=== PATIENT | male | born 1955 | race Caucasian/White ===

== ENCOUNTER → 2016-11-28 | Day surgery (SDC) | payer OTHER ==
[2016-11-08 09:57] VITALS: Ht 176.5 cm; Wt 82.7 kg
[~2016-11-28] VITALS: Ht 176.5 cm; Wt 82.7 kg
[~2016-11-28] MED LIST: ALLO100T PO; ASCA500 PO; ATOR-54 PO; BICA50TA6 PO; CALC500C70 PO; CALCTAB65 PO; CHOL400T PO; ENOX30IN4 SQ; FERR1TAB23 PO; FOLI1TAB7 PO; FURO-85 PO; GABA-113 PO; LIDOCAINE HCL 2% 2 ML VIAL (20MG/ML) ONE; LORA-741 PO; METO100T14 PO; METO50TA16 PO; OMEGCAP2 PO; OXYC1TAB3 PO; PRLSR20 PO; PROPOFOL IV EMULSION 10 MG/ML 20 ML VIAL IV ONE; SODIUM CHLORIDE 0.9% 500ML 500 ML IV ONE; VTMB122500 SL; WARF5TAB7 PO
--- NOTE | 2016-11-28 14:41 | Endo History and Physical ---
History & Physical Date of Service: Nov 28, 2016. Chief Complaint: Bleeding Referring Physician: Nam Carlson PA-C And Nam Vallejo D.O. History of Present Illness anemia; heme positive stools Past Medical History Pulmonary Emboli, Anxiety, Reflux, Cancer, High Cholesterol, Sleep Apnea, Hypertension Past Surgical History Hx Cardiac Surgery: No Hx Internal Defibrillator: No Hx Pacemaker: No Hx Abdominal Surgery: No Hx of Implantable Prosthesis: No Hx Post-Op Nausea and Vomiting: No Hx Cancer Surgery: Yes (PROSTATECTOMY) Hx Thoracic Surgery: No Hx Orthopedic: Yes (LUMBAR FUSION, CERVICAL FUSION, RT HIP FX REPAIR (HARDWARE) ) Hx Urinary Tract Surgery: No (CYSTOSCOPY) Family History None Social History Smoking Status: Former Smoker Hx Substance Use: No Hx Alcohol Use: Yes (OCCASSIONALLY "MORE DURING HUNTING SEASON") Allergies Coded Allergies: No Known Allergies (Verified , 11/08/16) Current Medications Reported Home Medications Medications Dose Route/Sig Max Daily Dose Days Date Category Dose Instructions Lovenox (Enoxaparin Sodium) 30 Mg/0.3 Ml Inj 30 Mg SQ Q12H 11/28/16 Reported not sure of dosage Lopressor (Metoprolol Tartrate) 100 Mg Tab 200 Mg PO HS 11/08/16 Reported Jantoven (Warfarin Sodium) 5 Mg Tab 5 Mg PO QAM 11/08/16 Reported Vitamin B-12 (Cyanocobalamin) 2,500 Mcg Subl 2,500 Mcg SL QAM 09/11/16 Reported Folvite (Folic Acid) 1 Mg Tab 1 Mg PO QAM 09/11/16 Reported Roxicodone Ir (Oxycodone HCl) 5 Mg Tab 5-10 Mg PO Q4H PRN 08/23/16 Reported Vitamin D (Cholecalciferol) 400 Unit Tab 400 Inter.unit PO QAM 07/30/16 Reported Vitamin C (Ascorbic Acid) 500 Mg Tab 1,000 Mg PO QAM 07/30/16 Reported Prilosec (Omeprazole) 20 Mg Capcr 20 Mg PO QAM 07/30/16 Reported Iron (Ferrous Sulfate) 325 Mg Tab 325 Mg PO QAM 07/30/16 Reported Neurontin (Gabapentin) 300 Mg Cap 300 Mg PO TID 07/30/16 Reported Lasix (Furosemide) 20 Mg Tab 20 Mg PO DAILY PRN 10/26/15 Reported Fish Oil ([place]-3 Fatty Acids) 1 Cap Cap 1 Cap PO QAM 10/26/15 Reported Calcium 500 + D (Calcium Carbonate-Vitamin D) 1 Tab Tab 1 Tab PO QAM 10/26/15 Reported Casodex (Bicalutamide) 50 Mg Tab 50 Mg PO HS 10/26/15 Reported Zyloprim (Allopurinol) 100 Mg Tab 100 Mg PO HS 10/26/15 Reported Ativan (Lorazepam) 0.5 Mg Tab 0.5 Mg PO HS PRN 05/27/14 Reported Lopressor (Metoprolol Tartrate) 50 Mg Tab 200 Mg PO HS 10/28/13 Reported Vital Signs Weight (Kilograms): 82.73 Height (Feet): 5 Height (Inches): 9.5 Date Time Temp Pulse Resp B/P Pulse Ox O2 Delivery O2 Flow Rate FiO2 11/28/16 14:31 37.0 69 20 155/75 96 Room Air Physical Exam AAo x32 Nl s1s2 Lungs CTA Abd soft NT/ND + BS - CCE Assessment and Plan colonoscopy
--- NOTE | 2016-11-28 15:41 | GI REPORT ---
Procedure Date: 11/28/2016 2:56 PM Procedure: Upper GI endoscopy Indications: Iron deficiency anemia Medicines: Propofol per Anesthesia Complications: No immediate complications. Estimated blood loss: Minimal. Estimated Blood Loss: Estimated blood loss was minimal. Procedure: Pre-Anesthesia Assessment: - Prior to the procedure, a History and Physical was performed, and patient medications and allergies were reviewed. The patient's tolerance of previous anesthesia was also reviewed. The risks and benefits of the procedure and the sedation options and risks were discussed with the patient. All questions were answered, and informed consent was obtained. Prior Anticoagulants: The patient has taken no previous anticoagulant or antiplatelet agents. ASA Grade Assessment: III - A patient with severe systemic disease. After reviewing the risks and benefits, the patient was deemed in satisfactory condition to undergo the procedure. After obtaining informed consent, the endoscope was passed under direct vision. Throughout the procedure, the patient's blood pressure, pulse, and oxygen saturations were monitored continuously. The scope was introduced through the mouth, and advanced to the third part of duodenum. The upper GI endoscopy was accomplished without difficulty. The patient tolerated the procedure well. Findings: The examined esophagus was normal. The Z-line was irregular and was found 40 cm from the incisors. A single 5 mm sessile polyp with no bleeding and no stigmata of recent bleeding was found in the gastric antrum. Biopsies were taken with a cold forceps for histology. Estimated blood loss was minimal. Verification of patient identification for the specimen was done by the physician and aircraft avionics technician using the patient's name and medical record number. The examined duodenum was normal. Retained gastric contents are not identified on this exam. The cardia and gastric fundus were normal on retroflexion. Impression: - Normal esophagus. - Z-line irregular, 40 cm from the incisors. - A single gastric polyp. Biopsied. - Normal examined duodenum. Recommendation: - Patient has a contact number available for emergencies. The signs and symptoms of potential delayed complications were discussed with the patient. Return to normal activities tomorrow. Written discharge instructions were provided to the patient. - Resume regular diet. - Resume Coumadin (warfarin) today and Lovenox (enoxaparin) tomorrow at prior doses. - Await pathology results. - Return to referring physician as previously scheduled. MD Maxwell Manuel MD 11/28/2016 3:40:29 PM This report has been signed electronically. Note Initiated On: 11/28/2016 2:56 PM
--- NOTE | 2016-11-28 15:57 | GI REPORT ---
Procedure Date: 11/28/2016 3:11 PM Procedure: Colonoscopy Indications: Iron deficiency anemia secondary to chronic blood loss Medicines: Propofol per Anesthesia Complications: No immediate complications. Estimated blood loss: None. Estimated Blood Loss: Estimated blood loss: none. Procedure: Pre-Anesthesia Assessment: - Prior to the procedure, a History and Physical was performed, and patient medications and allergies were reviewed. The patient's tolerance of previous anesthesia was also reviewed. The risks and benefits of the procedure and the sedation options and risks were discussed with the patient. All questions were answered, and informed consent was obtained. Prior Anticoagulants: The patient has taken Lovenox (enoxaparin), last dose was day of procedure. ASA Grade Assessment: III - A patient with severe systemic disease. After reviewing the risks and benefits, the patient was deemed in satisfactory condition to undergo the procedure. After I obtained informed consent, the scope was passed under direct vision. Throughout the procedure, the patient's blood pressure, pulse, and oxygen saturations were monitored continuously. The scope was introduced through the anus and advanced to the terminal ileum, with identification of the appendiceal orifice and IC valve. The colonoscopy was performed without difficulty. The patient tolerated the procedure well. The quality of the bowel preparation was good. Findings: The perianal and digital rectal examinations were normal. Pertinent negatives include normal sphincter tone, no palpable rectal lesions and no anal lesion or abnormality was detected. A 1 mm polyp was found at the ileocecal valve. The polyp was sessile. The polyp was removed with a cold biopsy forceps. Resection and retrieval were complete. Estimated blood loss was minimal. Verification of patient identification for the specimen was done by the physician and wellfield technician using the patient's name and medical record number. Two sessile and semi-pedunculated polyps were found at 15 cm proximal to the anus. The polyps were 7 to 9 mm in size. These polyps were removed with a hot snare. Resection and retrieval were complete. To prevent bleeding post-intervention, two hemostatic clips were successfully placed (MR conditional). There was no bleeding during, and at the end, of the procedure. The retroflexed view of the distal rectum and anal verge was normal and showed no anal or rectal abnormalities. The exam was otherwise without abnormality. Impression: - One 1 mm polyp at the ileocecal valve, removed with a cold biopsy forceps. Resected and retrieved. - Two 7 to 9 mm polyps at 15 cm proximal to the anus, removed with a hot snare. Resected and retrieved. Clips (MR conditional) were placed. - The distal rectum and anal verge are normal on retroflexion view. - The examination was otherwise normal. Recommendation: - Discharge patient to home (ambulatory). - Resume regular diet. - Resume Coumadin (warfarin) today and Lovenox (enoxaparin) tomorrow at prior doses. Refer to managing physician for further adjustment of therapy. - Await pathology results. - Return to referring physician as previously scheduled. MD Maxwell Manuel MD 11/28/2016 3:55:29 PM This report has been signed electronically. Note Initiated On: 11/28/2016 3:11 PM
--- NOTE | 2016-11-28 16:02 | Anesthesiology Progress Note ---
Anesthesia Post Op Note Date & Time Nov 28, 2016 at 16:01 Vital Signs Pain Intensity: 3 Vital Signs Past 12 Hours Date Time Temp Pulse Resp B/P Pulse Ox O2 Delivery O2 Flow Rate FiO2 11/28/16 16:00 58 20 146/71 97 Room Air 11/28/16 15:47 37.0 54 20 150/72 97 Room Air 11/28/16 14:31 37.0 69 20 155/75 96 Room Air Notes Mental Status: alert / awake / arousable, participated in evaluation Pt Amnestic to Procedure: Yes Nausea / Vomiting: adequately controlled Pain: adequately controlled Airway Patency, RR, SpO2: stable & adequate BP & HR: stable & adequate Hydration State: stable & adequate Anesthetic Complications: no major complications apparent Pt doing well.
--- NOTE | 2016-11-28 16:06 | Discharge Instructions ---
Endoscopy Patient Instructions Date / Procedure(s) Performed Nov 28, 2016. Colonoscopy, EGD Allergy Information Coded Allergies: No Known Allergies (Verified , 11/08/16) Discharge Date / Findings Nov 28, 2016. colon and gastric polyps Medication Instructions Stopped Medication(s): stopped warfarin on Friday bridged with lovenox, last dose of lovenox @ 0700. Stopped iron on Friday Restart Stopped Medication(s): Reported Home Medications Medications Dose Route/Sig Max Daily Dose Days Date Category Dose Instructions Lovenox (Enoxaparin Sodium) 30 Mg/0.3 Ml Inj 30 Mg SQ Q12H 11/28/16 Reported not sure of dosage Lopressor (Metoprolol Tartrate) 100 Mg Tab 200 Mg PO HS 11/08/16 Reported Jantoven (Warfarin Sodium) 5 Mg Tab 5 Mg PO QAM 11/08/16 Reported Vitamin B-12 (Cyanocobalamin) 2,500 Mcg Subl 2,500 Mcg SL QAM 09/11/16 Reported Folvite (Folic Acid) 1 Mg Tab 1 Mg PO QAM 09/11/16 Reported Roxicodone Ir (Oxycodone HCl) 5 Mg Tab 5-10 Mg PO Q4H PRN 08/23/16 Reported Vitamin D (Cholecalciferol) 400 Unit Tab 400 Inter.unit PO QAM 07/30/16 Reported Vitamin C (Ascorbic Acid) 500 Mg Tab 1,000 Mg PO QAM 07/30/16 Reported Prilosec (Omeprazole) 20 Mg Capcr 20 Mg PO QAM 07/30/16 Reported Iron (Ferrous Sulfate) 325 Mg Tab 325 Mg PO QAM 07/30/16 Reported Neurontin (Gabapentin) 300 Mg Cap 300 Mg PO TID 07/30/16 Reported Lasix (Furosemide) 20 Mg Tab 20 Mg PO DAILY PRN 10/26/15 Reported Fish Oil ([place]-3 Fatty Acids) 1 Cap Cap 1 Cap PO QAM 10/26/15 Reported Calcium 500 + D (Calcium Carbonate-Vitamin D) 1 Tab Tab 1 Tab PO QAM 10/26/15 Reported Casodex (Bicalutamide) 50 Mg Tab 50 Mg PO HS 10/26/15 Reported Zyloprim (Allopurinol) 100 Mg Tab 100 Mg PO HS 10/26/15 Reported Ativan (Lorazepam) 0.5 Mg Tab 0.5 Mg PO HS PRN 05/27/14 Reported Lopressor (Metoprolol Tartrate) 50 Mg Tab 200 Mg PO HS 10/28/13 Reported Reported Home Medications Medications Dose Route/Sig Max Daily Dose Days Date Category Dose Instructions Lovenox (Enoxaparin Sodium) 30 Mg/0.3 Ml Inj 30 Mg SQ Q12H 11/28/16 Reported not sure of dosage Lopressor (Metoprolol Tartrate) 100 Mg Tab 200 Mg PO HS 11/08/16 Reported Jantoven (Warfarin Sodium) 5 Mg Tab 5 Mg PO QAM 11/08/16 Reported Vitamin B-12 (Cyanocobalamin) 2,500 Mcg Subl 2,500 Mcg SL QAM 09/11/16 Reported Folvite (Folic Acid) 1 Mg Tab 1 Mg PO QAM 09/11/16 Reported Roxicodone Ir (Oxycodone HCl) 5 Mg Tab 5-10 Mg PO Q4H PRN 08/23/16 Reported Vitamin D (Cholecalciferol) 400 Unit Tab 400 Inter.unit PO QAM 07/30/16 Reported Vitamin C (Ascorbic Acid) 500 Mg Tab 1,000 Mg PO QAM 07/30/16 Reported Prilosec (Omeprazole) 20 Mg Capcr 20 Mg PO QAM 07/30/16 Reported Iron (Ferrous Sulfate) 325 Mg Tab 325 Mg PO QAM 07/30/16 Reported Neurontin (Gabapentin) 300 Mg Cap 300 Mg PO TID 07/30/16 Reported Lasix (Furosemide) 20 Mg Tab 20 Mg PO DAILY PRN 10/26/15 Reported Fish Oil ([place]-3 Fatty Acids) 1 Cap Cap 1 Cap PO QAM 10/26/15 Reported Calcium 500 + D (Calcium Carbonate-Vitamin D) 1 Tab Tab 1 Tab PO QAM 10/26/15 Reported Casodex (Bicalutamide) 50 Mg Tab 50 Mg PO HS 10/26/15 Reported Zyloprim (Allopurinol) 100 Mg Tab 100 Mg PO HS 10/26/15 Reported Ativan (Lorazepam) 0.5 Mg Tab 0.5 Mg PO HS PRN 05/27/14 Reported Lopressor (Metoprolol Tartrate) 50 Mg Tab 200 Mg PO HS 10/28/13 Reported Provider Instructions Activity Restrictions - No exercising or heavy lifting for 24 hours. - Do not drink alcohol the day of the procedure. - Do not drive a car or operate machinery until the day after the procedure. - Do not make any important decisions or sign important papers in 24 hours after the procedure. Following Day: - Return to full activity which may include returning to work/school. Diet Start your diet with liquids and light foods (jello, soup, juice, toast). Then eat your usual diet if not nauseated. Treatment For Common After Affects For mild abdominal pain, bloating, or excessive gas: - Rest - Eat lightly - Lie on right side Follow-Up Information Follow-up with Nam Carlson PA-C And Nam Vallejo D.O. as scheduled Anesthesia Information What You Should Know You have had a procedure that required some medicine to reduce anxiety and discomfort. This treatment is called moderate sedation. After receiving the treatment, you may be sleepy, but you will be able to breathe on your own. The effects of the treatment may last for several hours. Follow these instructions along with Activity/Diet recommendations noted above: * Do NOT do anything where dizziness or clumsiness would be dangerous. * Rest quietly at home today, then you can be up and about tomorrow. * Have a responsible person stay with you the rest of today. * You may have had an I.V. today. If so, you may take the dressing off later today. Recommendations Call your doctor if: * Trouble breathing * Continuous vomiting for more than 24 hours * Temperature above 101 degrees * Severe abdominal pain or bloating * Pain not relieved by pain medicine ordered * There is increased drainage or redness from any incision * A large amount of rectal bleeding greater than 2-3 tablespoons. (If you had a polyp/s removed or have hemorrhoids, a small amount of blood - from the rectum is to be expected.) * You have any unanswered questions or concerns. IN THE EVENT OF A SERIOUS EMERGENCY, GO TO THE NEAREST EMERGENCY ROOM Your discharge instructions were prepared by provider Maxwell Christopher. Patient Instructions Signature Page Froilan Duarte Patient (or Guardian) Signature/Date: I have read and understand the instructions given to me by my caregivers. Caregiver/RN/Doctor Signature/Date: The above-named patient and/or guardian has received patient instructions on this date. + Original Patient Signature Page (only) stays with chart. Please make copy for patient.
[2016-11-28 16:17] VITALS: BP 167/78; PULSE 54; O2SAT 97
== END | disposition home or self-care (01) ==
LOC: C.GI 13:55
PROVIDERS: ATTEND Internal Medicine Gastroenterology
DX: D50.0 Iron deficiency anemia secondary to blood loss (chronic) (principal); K63.5 Polyp of colon; K31.7 Polyp of stomach and duodenum; D12.6 Benign neoplasm of colon, unspecified; K21.9 Gastro-esophageal reflux disease without esophagitis; I26.99 Other pulmonary embolism without acute cor pulmonale; I10 Essential (primary) hypertension; F41.9 Anxiety disorder, unspecified; E78.5 Hyperlipidemia, unspecified; Z98.890 Other specified postprocedural states; Z98.1 Arthrodesis status; Z79.01 Long term (current) use of anticoagulants; Z87.891 Personal history of nicotine dependence

== ENCOUNTER → 2017-03-03 | Outpatient (CLI) | payer OTHER ==
[~2017-03-03] MED LIST changes: +APIX1TAB PO; -LIDOCAINE HCL 2% 2 ML VIAL (20MG/ML) ONE; -PROPOFOL IV EMULSION 10 MG/ML 20 ML VIAL IV ONE; -SODIUM CHLORIDE 0.9% 500ML 500 ML IV ONE; +WARF2.5T8 PO
[2017-03-03 12:27] LABS: INR 1.6 (0.9-1.1); PROTHROMBIN TIME (PATIENT) 17.2 SECONDS (9.0-12.0)
[2017-03-03 18:27] LABS: PROSTATE SPECIFIC ANTIGEN 0.507 ng/ml (0.000-4.000)
== END | disposition home or self-care (01) ==
LOC: C.LABPBG 11:08
PROVIDERS: ATTEND Urology
DX: I82.401 Acute embolism and thrombosis of unspecified deep veins of right lower extremity (principal); C61 Malignant neoplasm of prostate

== ENCOUNTER → 2017-05-23 | Outpatient (CLI) | payer OTHER ==
[~2017-05-23] MED LIST changes: -APIX1TAB PO; -CALCTAB65 PO; -ENOX30IN4 SQ; -LORA-741 PO; -METO50TA16 PO; -OXYC1TAB3 PO
[2017-05-23 12:41] LABS: MEAN CELL VOLUME 99.2 fL (80-100); MEAN CORPUSCULAR HEMOGLOBIN 33.7 pg (25-34); MEAN CORPUSCULAR HGB CONC 33.9 g/dl (32-36); MEAN PLATELET VOLUME 9.2 fL (7.4-10.4); PLATELET COUNT 213 K/uL (130-400); RED BLOOD COUNT 3.83 M/uL (4.7-6.1)
[2017-05-23 13:01] LABS: ESTIMATED AVERAGE GLUCOSE 111 mg/dl; HA1C FLAG Normal (Normal)
[2017-05-23 13:02] LABS: ALT/SGPT 26 U/L (12-78); AST/SGOT 17 U/L (15-37); BLOOD UREA NITROGEN 14 mg/dl (7-18); BUN/CREATININE RATIO 19.6 (10-20); CALCIUM 9.4 mg/dl (8.5-10.1); CARBON DIOXIDE 28 mmol/L (21-32); CHLORIDE 106 mmol/L (98-107); CREATININE 0.69 mg/dl (0.60-1.40); GLUCOSE,FASTING 101 mg/dl (70-99); MAGNESIUM 2.1 mg/dl (1.8-2.4); POTASSIUM 4.3 mmol/L (3.5-5.1); SODIUM 140 mmol/L (136-145)
[2017-05-23 13:07] LABS: ALKALINE PHOSPHATASE 71 U/L (45-117); CHOLESTEROL 206 mg/dl (0-200); CHOLESTEROL/HDL RATIO 2.9; HDL CHOLESTEROL 71 mg/dl; LDL CHOLESTEROL CALCULATED 103 mg/dl; TRIGLYCERIDES 161 mg/dl (0-150); VERY LOW DENSITY LIPOPROT CALC 32 mg/dl
== END | disposition home or self-care (01) ==
LOC: C.LABPBG 08:49
PROVIDERS: ATTEND Internal Medicine Cardiovascular Disease
DX: Z79.899 Other long term (current) drug therapy (principal); I10 Essential (primary) hypertension; E78.5 Hyperlipidemia, unspecified

== ENCOUNTER → 2017-07-04 | Outpatient (CLI) | payer OTHER ==
[2017-07-04 12:56] LABS: PROSTATE SPECIFIC ANTIGEN 0.251 ng/ml (0.000-4.000)
== END | disposition home or self-care (01) ==
LOC: C.LABPBG 09:34
PROVIDERS: ATTEND Urology
DX: C61 Malignant neoplasm of prostate (principal)

== ENCOUNTER → 2017-10-23 | Outpatient (CLI) | payer OTHER ==
[~2017-10-23] MED LIST changes: +APIX1TAB PO; +BICA50TA13 PO; -BICA50TA6 PO; -FOLI1TAB7 PO; +FOLI1TAB8 PO; -GABA-113 PO; -WARF2.5T8 PO; -WARF5TAB7 PO
[2017-10-23 13:09] VITALS: BP 137/77; PULSE 64; TEMP 36.9; O2SAT 96
--- NOTE | 2017-10-23 16:18 | Radiation Oncology Follow-Up ---
Radiation Oncology Follow-Up Date of Visit Oct 23, 2017. 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 His AUA score was 8. Last year the score was 4. He has developed more issues in regards to incontinence. He completed expanded prostate cancer index composite for clinical practice and gave a score of 7 of 12 and urinary incontinence symptoms. He gave a score of 4 of 12 and urinary and irritation symptoms. He gave a score of 4 of 12 bowel symptoms. He gave a score of 9 of 12 in sexual symptoms. He gave a score of 8 of 12 in hormonal vitality symptoms. His total was 32 of 60. He continues on hormone suppression with Casodex and Lupron. The PSA has been responding to this therapy. He had a PSA 03/03/2017 that was 0.507. He had a PSA on 07/04/2017 that was 0.251. Allergies Coded Allergies: No Known Allergies (Verified , 11/08/16) Home Medications Scheduled Allopurinol (Zyloprim), 100 MG PO HS Apixaban (Eliquis), 2.5 MG PO BID Ascorbic Acid (Vitamin C), 1,000 MG PO QAM Atorvastatin (Lipitor), 20 MG PO DAILY Bicalutamide (Casodex), 50 MG PO HS Calcium/Vitamin D ([place] 500 Plus D), Unknown Dose PO DAILY Cholecalciferol (Vitamin D), 400 INTER.UNIT PO QAM Cyanocobalamin (Vitamin B-12), 2,500 MCG SL QAM Ferrous Sulfate (Iron), 325 MG PO QAM Folic Acid (Folvite), 1 MG PO QAM Metoprolol Tartrate (Lopressor) (Lopressor), 200 MG PO HS Omeprazole (Prilosec), 20 MG PO [id number] Scheduled PRN Furosemide (Lasix), 20 MG PO DAILY PRN for Edema Review of Systems Gastrointestinal: Symptoms: Nausea, Vomiting, Diarrhea GI Comments: "has problems usually every day " Oral: Symptoms: No Problems Respiratory: Symptoms: Dry Cough Urinary: Symptoms: Nocturia Comments: nocturia times 2 - 3 , incontinence at times every day - anxiety Skin: Symptoms: No Problems Physical Exam Vital Signs Date Time Temp Pulse Resp B/P (MAP) Pulse Ox O2 Delivery O2 Flow Rate FiO2 10/23/17 13:09 36.9 64 18 137/77 96 Fatigue: None General Appearance: no apparent distress Eyes: normal inspection, EOMI ENT: normal ENT inspection, hearing grossly normal Respiratory/Chest: lungs clear, no respiratory distress, no accessory muscle use Cardiovascular: regular rate, rhythm, no gallop, no murmur Abdomen: non tender, soft, no organomegaly Anal / Rectum: Normal stricture tone. Prostate bed is flat. No rectal masses and no rectal bleeding. Extremities: no pedal edema Neurologic/Psychiatric: no motor/sensory deficits, alert, normal mood/affect Skin: warm/dry Pain Management Patient Reports Pain: Yes Pain Location: back Patient Preferred Pain Scale: 0 - 10 Initial Pain Intensity: 4.0 Pain Management Plan He has chronic low back pain. This currently does not require any over the counter or prescriptive pain medications. Laboratory Laboratory Results: were reviewed Laboratory Comments: Documented in the interim history. Pathology Pathology Results: not applicable Imaging Imaging Studies: not applicable Assessment & Plan Plan: Continue regular follow-up with Dr. Austin and his primary care provider. We reviewed today the side effects that he is having from the antiestrogen therapy. We discussed using [id number] vitamin D for the hot flashes. I' ve also asked him to review and research the use of Effexor for hot flashes. This may also help to improve his energy levels and feeling down. He is going to review that with his primary care provider. We also discussed physical therapy for the urinary incontinence. Patients do benefit from therapy which is being provided at [facility] for patients with urinary incontinence post prostatectomy. He'll discuss that with Dr. Austin his next visit. A follow-up appointment with our office was not given. He may call if he has new questions or concerns in the interim. Total Time In Follow-Up I spent 20 minutes speaking to the patient and performing examination. I spent 15 minutes reviewing information in completing this note. Copy To Luca Austin M.D.; Nam Carlson PA-C
== END | disposition home or self-care (01) ==
LOC: C.ONC 13:00
PROVIDERS: ATTEND Physician Assistant Medical
DX: Z08 Encounter for follow-up examination after completed treatment for malignant neoplasm (principal); Z92.3 Personal history of irradiation; Z85.46 Personal history of malignant neoplasm of prostate

== ENCOUNTER → 2017-11-14 | Outpatient (CLI) | payer OTHER ==
[~2017-11-14] MED LIST changes: -OMEGCAP2 PO
[2017-11-14 12:43] LABS: HEMOGLOBIN 13.7 g/dL (14.0-18.0); MEAN CELL VOLUME 102.4 fL (80-100); MEAN CORPUSCULAR HGB CONC 35.1 g/dl (32-36); MEAN PLATELET VOLUME 9.5 fL (7.4-10.4); PLATELET COUNT 217 K/uL (130-400); RED CELL DISTRIBUTION WIDTH CV 12.7 % (11.5-14.5); RED CELL DISTRIBUTION WIDTH SD 47.4 fL (36.4-46.3); WHITE BLOOD COUNT 4.07 K/uL (4.8-10.8)
[2017-11-14 13:16] LABS: HEMOGLOBIN A1C 5.2 % (4.5-5.6)
[2017-11-14 14:03] LABS: ALBUMIN 4.1 gm/dl (3.4-5.0); TOTAL PROTEIN 7.9 gm/dl (6.4-8.2)
[2017-11-14 14:17] LABS: BLOOD UREA NITROGEN 14 mg/dl (7-18); CALCIUM 9.1 mg/dl (8.5-10.1); CARBON DIOXIDE 25 mmol/L (21-32); CREATININE 0.76 mg/dl (0.60-1.40); GLUCOSE,FASTING 98 mg/dl (70-99); POTASSIUM 3.9 mmol/L (3.5-5.1); SODIUM 140 mmol/L (136-145)
[2017-11-14 14:28] LABS: CHOLESTEROL 218 mg/dl (0-200); LDL CHOLESTEROL (DIRECT) 112 mg/dl
== END | disposition home or self-care (01) ==
LOC: C.LABPBG 09:16
PROVIDERS: ATTEND Internal Medicine Cardiovascular Disease
DX: I10 Essential (primary) hypertension (principal); I34.0 Nonrheumatic mitral (valve) insufficiency; Z79.899 Other long term (current) drug therapy; C61 Malignant neoplasm of prostate

== ENCOUNTER → 2018-03-16 | Outpatient (CLI) | payer OTHER ==
[~2018-03-16] MED LIST changes: -BICA50TA13 PO; +BICA50TA6 PO
[2018-03-16 13:35] LABS: ALBUMIN 4.3 gm/dl (3.4-5.0); TOTAL PROTEIN 7.7 gm/dl (6.4-8.2)
== END | disposition home or self-care (01) ==
LOC: C.LABPBG 10:17
PROVIDERS: ATTEND Urology
DX: Z00.00 Encounter for general adult medical examination without abnormal findings (principal); R31.0 Gross hematuria; I10 Essential (primary) hypertension; E78.5 Hyperlipidemia, unspecified; M54.12 Radiculopathy, cervical region; C61 Malignant neoplasm of prostate; G56.00 Carpal tunnel syndrome, unspecified upper limb

== ENCOUNTER → 2018-06-15 | Outpatient (CLI) | payer OTHER ==
[~2018-06-15] MED LIST changes: +BICA50TA13 PO; -BICA50TA6 PO
== END | disposition home or self-care (01) ==
LOC: C.LABPBG 08:47
PROVIDERS: ATTEND Urology
DX: C61 Malignant neoplasm of prostate (principal)

== ENCOUNTER 2023-06-03 18:39 | Inpatient (IN) ==
[2023-06-03 19:54] LABS: Basophils # (auto) 0.03 K/uL (0-0.2); Basophils % (auto) 0.4 %; Eosinophils # (auto) 0.03 K/uL (0-0.50); Eosinophils % (auto) 0.4 %; Hematocrit (blood only) 24.3 % (42.0-52.0); Hemoglobin 8.2 g/dl (14.0-18.0); Immature Granulocytes # (auto) 0.04 K/uL (0.01-0.20); Immature Granulocytes % (auto) 0.6 %; Lymphocytes # (auto) 0.51 K/uL (1.2-3.4); Mean Corpuscular Hemoglobin 36.1 pg (25.0-34.0); Mean Corpuscular Hgb Conc 33.7 g/dL (32.0-36.0); Mean Platelet Volume 9.2 fL (9.4-12.4); Monocytes # (auto) 0.51 K/uL (0.11-0.59); Neutrophils # (auto) 6.13 K/uL (1.40-6.50); Neutrophils % (auto) 84.6 %; Platelet Count 222 K/uL (130-400); RDW Coefficient of Variation 13.3 % (11.5-14.5); RDW Standard Deviation 51.6 fL (36.4-46.3); Red Blood Count 2.27 M/uL (4.70-6.10); White Blood Count 7.25 K/ul (4.8-10.8)
[2023-06-03 20:09] LABS: Albumin Globulin Ratio 1.6 (0.9-2); BUN Creatinine Ratio 18.8 (10-20); Bilirubin,Total 0.3 mg/dl (0.2-1.0); Calcium 8.5 mg/dl (8.6-10.3); Creatinine Clr Calc Pharmacy 79.5 ml/min; Est GFR (African American) 95.1 ml/min; Globulin 2.5 gm/dl (2.5-4.0); Potassium 4.4 mmol/L (3.5-5.1); Total Protein 6.5 gm/dl (6.0-8.3)
[2023-06-03 20:12] LABS: Appearance Urine Turbid (Clear); Color Urine Red; Specific Gravity Urine 1.022 (1.000-1.030)
[2023-06-03 20:13] LABS: RBC Urine >30 /hpf (0-4)
[2023-06-03 20:14] LABS: Bacteria Urine 1+ (Negative); Hyaline Casts Urine 0-5 /lpf (0-5); WBC Urine >30 /hpf (0-5)
[2023-06-03] MEDS ORDERED: cefTRIAXone SODIUM 2,000 MG/70 ML BAG IV STA (21:50)
--- NOTE | 2023-06-03 22:04 | History & Physical Report ---
Date of Service June 03, 2023 Assessment & Plan (1) Urinary retention: Plan: Patient with 2 episodes of urinary retention over the past 2 weeks and was scheduled to have a cystoscope on 06/06. Patient still having pain and discomfort even with Shepherd placement as well as continuing having red urine and clots in Shepherd bag. Hemoglobin dropped to 8.2 which is lower than patient's baseline. Previously between 10.812. Ordered stat CT abdomen pelvis with contrast at time of admission. We will consult urology who will see the patient in the morning. (2) Hematuria: Plan: After Shepherd placement done in the ED, patient started having clots and dark red urine in Shepherd bag. Given patient's drop in hemoglobin we will order CT abdomen pelvis. We will refer to urology. (3) Urinary tract infection: Plan: Given 2000 mg ceftriaxone in the ED. Urine cultures pending We will continue with ceftriaxone 1000 mg every 24 hours. (4) History of pulmonary embolism: Plan: Patient with history of pulmonary embolism. Patient was told did not take his Lovenox since 05/19. However and unable to find any where in the chart where patient was instructed to not take Lovenox. We will hold Lovenox for now given the possibility of bleed. Would recommend patient go back on anticoagulation as soon as he is cleared from a urology standpoint. (5) Prostate cancer metastatic to bone: Plan: Status post prostatectomy back in 2006. Follows with oncology outpatient for metastatic cancer. (6) HLD (hyperlipidemia): Plan: We will hold patient's atorvastatin at this time. May restart once cleared from urology standpoint. (7) Hypertension: Plan: We will continue patient's metoprolol 100 mg twice daily and losartan 50 mg once a day. Plan Fluids: None Nutrition: N.p.o. after midnight Code status: full code DVT ppx: SCDs, patient was holding home Lovenox since the . We will hold due to possibility of bleed at this time. Consults: Urology PT/OT: None Case management: None Dispo: med/surg Thank you for allowing me to participate in the care of your patient. -Dr. Fareed Noe PGY2 History of Present Illness Chief Complaint: Urinary retention/clots Primary Care Provider: Nam Carlson Patient is a 67-year-old male with past medical history of prostate cancer, status post prostatectomy in 2007, status post orchiectomy in 2018, radiation- induced cystitis, DVT, pulmonary embolism. Patient presented to the hospital due to difficulties with urination. Patient has not been able to urinate since 3 AM this morning. It is very painful when he tries to urinate. He has had this issue before approximately 2 weeks ago. He denies any fevers, chills, nausea, vomiting, abdominal pain, or any issues with bowel movements. In the ED patient had a Shepherd placed and patient was able to have some output of urine though significantly red in color and still remains painful in his urethra. Patient was previously on Lovenox for known history of DVT and PE but has not been taking it since his urinary retention has started. Patient has had a similar issue previously that happened about 2 weeks ago. He followed with urology and it was recommended that he have a cystoscopy which was scheduled for 06/06. Previously patient has not had any not having any issues with urinary retention previously. Stating he has only had about 1 incidence over the last 10 years prior to 2 weeks ago. CBC showing a slight drop in hemoglobin from his baseline, UA positive for red blood cells and bacteria. Urine cultures pending. Allergies Allergy/AdvReac Type Severity Reaction Status Date / Time No Known Drug Allergies Allergy Nkda Verified 05/29/23 10:32 Home Medications Medication Instructions Recorded Confirmed Type allopurinol 100 mg tablet 100 mg PO QPM 08/25/18 05/29/23 History ascorbic acid (vitamin C) 1,000 mg 1 g PO QAM 08/25/18 05/29/23 History tablet (Vitamin C) atorvastatin 20 mg tablet 20 mg PO HS 08/25/18 05/29/23 History cholecalciferol (vitamin D3) 50 2,000 unit PO QAM 08/25/18 05/29/23 History mcg (2,000 unit) capsule (Vitamin D3) cyanocobalamin (vitamin B-12) 2,500 mcg sublingual QAM 08/25/18 05/29/23 History 2,500 mcg sublingual tablet (Vitamin B-12) ferrous sulfate 325 mg (65 mg 325 mg PO QAM 08/25/18 05/29/23 History iron) tablet (iron) folic acid 1 mg tablet 1 mg PO QAM 08/25/18 05/29/23 History metoprolol tartrate 100 mg tablet 100 mg PO BID 08/25/18 05/29/23 History multivitamin 1 tab PO QAM 08/25/18 05/29/23 History omeprazole magnesium 20 mg 20 mg PO QAM 08/25/18 05/29/23 History tablet,delayed release (Prilosec OTC) losartan 50 mg tablet (Cozaar) 50 mg PO HS 05/05/19 05/29/23 History mirtazapine 30 mg tablet 15 mg PO HS 05/10/20 05/29/23 History abiraterone 500 mg tablet (Zytiga) 1,000 mg PO DAILY 02/27/23 05/29/23 History gabapentin 300 mg capsule 300 mg PO BID 02/27/23 05/29/23 History prednisone 5 mg tablet 5 mg PO BID 02/27/23 05/29/23 History enoxaparin 30 mg/0.3 mL 30 mg (0.3 mL) subcut Q24H #90 05/17/23 05/29/23 Rx subcutaneous syringe SYRINGES ciprofloxacin HCl 500 mg tablet 500 mg PO BID #14 tabs 06/03/23 Rx Past Med/Surg History Medical History Acute radiation cystitis Carpal tunnel syndrome Cervical radiculopathy at C8 Cervical stenosis of spinal canal (06/20/14) Chronic anticoagulation DVT of lower extremity (deep venous thrombosis) Elevated liver function tests Gout Gross hematuria Hearing deficit WEARS HEARING AIDS History of DVT (deep vein thrombosis) RLE DVT 2013; POST-OP History of prostate cancer S/P PROSTATECTOMY; RADIATION (2006) History of pulmonary embolism (~2006) HLD (hyperlipidemia) Hx of fracture of hip RIGHT WITH ORIF Hx of pulmonary embolus 2006; POST-OP Hyperlipemia Hypertension Incontinence 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 Lumbar stenosis with neurogenic claudication Neoplasm of prostate Neutropenia Prostate cancer (~2006) Urinary retention Valvular disease MILD [place]/TI Surgical History History of back surgery History of cystoscopy History of prostatectomy "TURP" History of removal of testicle Hx of cervical spine surgery Status post hip surgery Family History Unknown Heart disease Hypertension Father Prostate cancer Other Hearing deficit Social History Smoking Status: Former smoker Tobacco Type: Cigarettes Second Hand Exposure: No; Do You Dip or Chew Tobacco: No; Tobacco Cessation Education Requested by Patient: No Hx Alcohol Use: Yes Alcohol type: beer Hx Substance Use: Yes Last Used Substance: Unknown Last Used Substance Other:: Used very little. Substance Use Type Other:: Vape (Medical card). Preferred Language: Puerto Rican Communication Ability: Effective Visual Impairment: No Limitations Hearing Ability: Use of Hearing Aid Trolley Car Overhauler Required: No Beliefs That Will Affect Care: None marital status: Current Living Situation: Spouse current occupational status: disabled Other Information That Helps Us Care for You: No Feels Safe at Home: Yes Safety Concerns: Feels Safe At This Time Childhood Exposure to Second-Hand Smoke: No caffeine: Yes during the past year weight has: decreased > 10 lbs Assistive Devices: Cane, Glasses and Hearing Aid - Left Review of Systems Review of Systems: All systems reviewed & are unremarkable except as noted in Subjective Physical Exam Physical Exam: Constitutional: well-appearing, no acute distress HEENT: NCAT, no conjunctival injection CV: regular rhythm, no murmur appreciated, extremities well-perfused, no LE edema Resp: CTABL, no wheezes/rales/rhonchi appreciated, no increased work of breathing GI: soft, nondistended, nontender, BS normoactive : Dark red urine and clots seen in Shepherd bag MSK: no gross deformities appreciated Skin: warm, dry, no rash appreciated Neuro: alert, oriented, no focal neurologic deficit appreciated Results & Data Results & Data Vital Signs (Past 12 Hours) Vital Signs Temp Pulse Resp BP Pulse Ox O2 Del Method 06/03/23 18:41 36.1 C L 67 20 118/71 94 Room Air Supervising Physician Co-Signing Physician Notes Patient seen and examined, chart reviewed, case discussed with Dr. Noe and I agree with the assessment and plan as above except as otherwise noted Labs and images reviewed Froilan is a 67-year-old male with a history of bladder radiation who has had obstruction, hematuria, and clots with a two-point drop in hemoglobin. At bedside he reports that he has been generally well other than one episode prior to this, but has had much more bleeding and pelvic pressure over the past 2 weeks. Denies chest pain, chest pressure, lightheadedness, dizziness. Denies other bleeding. Abdomen is soft and nontender at time of visit, lungs are cl ear, heart rate is regular but slightly bradycardic. Agree with Shepherd placement, irrigation, urology follow-up. Oxybutynin ordered for spasm. I agree with assessment and plan as Resident Activity Tracking Resident Involvement: Resident Care Provided Care Provided: Adult Hospital Medicine (2) Hematuria Hematuria type: gross Qualified Code(s): R31.0 - Gross hematuria (3) Urinary tract infection Hematuria presence: with hematuria
--- NOTE | 2023-06-03 23:01 | Emergency Department Note ---
History of Present Illness General Chief complaint: Urinary Symptoms Stated complaint: URINE SX Time Seen by Provider: 06/03/23 19:13 History of Present Illness Provider complaint: Difficulty urinating Onset (ago): day(s) 1 Maximum Pain Intensity: 8 67-year-old male presents emergency department for difficulty urinating. Patient reports he started having blood in his urine earlier today and then has been unable to urinate. He is reporting pain in his suprapubic area. No vomiting. No fevers. Patient reports he is no longer on Lovenox. Home Medications Medication Instructions Recorded Confirmed Type allopurinol 100 mg tablet 100 mg PO QPM 08/25/18 05/29/23 History ascorbic acid (vitamin C) 1,000 mg 1 g PO QAM 08/25/18 05/29/23 History tablet (Vitamin C) atorvastatin 20 mg tablet 20 mg PO HS 08/25/18 05/29/23 History cholecalciferol (vitamin D3) 50 2,000 unit PO QAM 08/25/18 05/29/23 History mcg (2,000 unit) capsule (Vitamin D3) cyanocobalamin (vitamin B-12) 2,500 mcg sublingual QAM 08/25/18 05/29/23 History 2,500 mcg sublingual tablet (Vitamin B-12) ferrous sulfate 325 mg (65 mg 325 mg PO QAM 08/25/18 05/29/23 History iron) tablet (iron) folic acid 1 mg tablet 1 mg PO QAM 08/25/18 05/29/23 History metoprolol tartrate 100 mg tablet 100 mg PO BID 08/25/18 05/29/23 History multivitamin 1 tab PO QAM 08/25/18 05/29/23 History omeprazole magnesium 20 mg 20 mg PO QAM 08/25/18 05/29/23 History tablet,delayed release (Prilosec OTC) losartan 50 mg tablet (Cozaar) 50 mg PO HS 05/05/19 05/29/23 History mirtazapine 30 mg tablet 15 mg PO HS 05/10/20 05/29/23 History abiraterone 500 mg tablet (Zytiga) 1,000 mg PO DAILY 02/27/23 05/29/23 History gabapentin 300 mg capsule 300 mg PO BID 02/27/23 05/29/23 History prednisone 5 mg tablet 5 mg PO BID 02/27/23 05/29/23 History enoxaparin 30 mg/0.3 mL 30 mg (0.3 mL) subcut Q24H #90 05/17/23 05/29/23 Rx subcutaneous syringe SYRINGES ciprofloxacin HCl 500 mg tablet 500 mg PO BID #14 tabs 06/03/23 Rx Allergies Allergy/AdvReac Type Severity Reaction Status Date / Time No Known Drug Allergies Allergy Nkda Verified 05/29/23 10:32 Past Med/Surg History Medical History Acute radiation cystitis Carpal tunnel syndrome Cervical radiculopathy at C8 Cervical stenosis of spinal canal (06/20/14) Chronic anticoagulation DVT of lower extremity (deep venous thrombosis) Elevated liver function tests Gout Gross hematuria Hearing deficit WEARS HEARING AIDS History of DVT (deep vein thrombosis) RLE DVT 2013; POST-OP History of prostate cancer S/P PROSTATECTOMY; RADIATION (2006) History of pulmonary embolism (~2006) HLD (hyperlipidemia) Hx of fracture of hip RIGHT WITH ORIF Hx of pulmonary embolus 2006; POST-OP Hyperlipemia Hypertension Incontinence 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 Lumbar stenosis with neurogenic claudication Neoplasm of prostate Neutropenia Prostate cancer (~2006) Urinary retention Valvular disease MILD [place]/TI Surgical History History of back surgery History of cystoscopy History of prostatectomy "TURP" History of removal of testicle Hx of cervical spine surgery Status post hip surgery Family History Unknown Heart disease Hypertension Father Prostate cancer Other Hearing deficit Social History Smoking Status: Never smoker Tobacco Type: Cigarettes Do You Dip or Chew Tobacco: No; Hx Alcohol Use: Yes Alcohol type: beer Hx Substance Use: No Preferred Language: Chinese Communication Ability: Effective Visual Impairment: No Limitations Hearing Ability: Use of Hearing Aid Global Transportation Manager Required: No Beliefs That Will Affect Care: None marital status: Current Living Situation: Spouse current occupational status: disabled Feels Safe at Home: Yes Childhood Exposure to Second-Hand Smoke: No caffeine: Yes during the past year weight has: decreased > 10 lbs Assistive Devices: Glasses and Hearing Aid - Bilateral Physical Exam Vital Signs Vital Signs - 24 hr 06/03/23 18:41 Temperature 36.1 C L Temperature Source Temporal Artery Scan Pulse Rate 67 Respiratory Rate 20 Respiratory Effort / Characteristics Non-Labored Spontaneous Respiratory Depth Normal Respiratory Pattern Regular Blood Pressure 118/71 Blood Pressure Mean 86 Pulse Oximetry 94 Oxygen Delivery Method Room Air Sepsis Recent Fever Within 48 Hours No Sepsis New/Unexplained Change in Mental Status No Sepsis Action Taken by Nursing No Action Required Physical Exam GENERAL: Nursing at bedside placing Shepherd catheter. HENT: Exam performed. -Head: Normocephalic and atraumatic. -Right Ear: External ear normal. No mastoid erythema -Left Ear: External ear normal. No mastoid erythema -Mouth/Throat: The oropharynx is clear and moist. No trismus in the jaw. No dental abscesses or uvula swelling. No oropharyngeal exudate or tonsillar abscesses. EYES: Conjunctivae and EOM are normal.Right eye exhibits no discharge. Left eye exhibits no discharge. No scleral icterus. NECK: Normal range of motion. Neck supple. No JVD present. No tracheal deviation and normal range of motion present. CV: Normal rate, regular rhythm, normal heart sounds and intact distal pulses. There is no peripheral edema. Palpable radial pulses bue. PULM/CHEST: Effort normal and breath sounds normal. No respiratory distress. No stridor. She has no wheezes. She has no rales. -Chest Wall: She exhibits no tenderness. ABD: The abdomen is soft. Bowel sounds are normal. She has no distension. No mass is present. There is no tenderness. There is no rebound, no guarding, no Potts's sign and no tenderness at McBurney's point. Rovsig negative MUSC/SKEL: Normal range of motion. There is no peripheral edema, tenderness or deformity. NEURO: Motor and sensation grossly intact. SKIN: Skin is warm and dry. She is not diaphoretic. PSYCH: She has a normal mood and affect. Behavior is normal. Judgment and thought content normal. Course Course 1912: The patient was evaluated in room B3. A complete history and physical exam was performed Cardiac monitoring: An order was placed for continuous cardiac monitoring. The monitor shows a rate of 70 with sinus rhythm interpreted by co 2045: Vital signs stable. Sodium 128. Hemoglobin 8.2 down from 11.32 weeks ago. Shepherd draining well. Urinalysis concerning for infection. Discussed case with Dr. Coy urology patient will follow-up for regular scheduled appointment on for cystoscopy. DISCHARGE - Plan of care discussed with patient and questions answered. The patient was given both verbal and printed discharge instructions. The patient verbalized understanding and ability to comply. The patient is to seek outpatient follow up as noted in the discharge instructions. The patient verbalized understanding and ability to comply. The patient is discharged in stable condition. The patient was instructed to return for worsening symptoms. 2145: At time of discharge nursing informing that the patient was having difficulty urinating and a lot of abdominal pain again. Shepherd catheter was flushed and large clots started pouring out with a lot of bloody urine. Catheter keeps clotting. We will switch patient to continuous irrigation with t hree-way catheter. Discussed the case with Dr. Coy who states he will see the patient on consult tomorrow morning. [facility] be [facility] team. Administered Medications Discontinued Medications Ceftriaxone Sodium (Rocephin) 2,000 mg in 70 mls @ 140 mls/hr IV NOW STA Stop: 06/03/23 22:19 Last Admin: 06/03/23 22:34 Dose: 140 mls/hr Documented By: RICH Medical Decision Making Medical Records Attestation: I reviewed the patient's medical records. External medical records reviewed. Patient was seen in the emergency department May 19, 2023 and had a Shepherd catheter placed for difficulty urinating. Patient was seen by urology Dr. Parikh on May 29, 2023 and the catheter was removed. Laboratory Data Attestation: I reviewed the patient's lab results. 06/03/23 19:21 06/03/23 19:21 Lab Results 06/03/23 06/03/23 06/03/23 Range/Units 19:21 19: 19:22 WBC 7.25 (4.8-10.8) K/ul RBC 2.27 L (4.70-6.10) M/uL Hgb 8.2 L (14.0-18.0) g/dl Hct 24.3 L (42.0-52.0) % MCV 107.0 H (80.0-100.0) fL MCH 36.1 H (25.0-34.0) pg MCHC 33.7 (32.0-36.0) g/dL RDW Std Deviation 51.6 H (36.4-46.3) fL RDW Coeff of Eilezer 13.3 (11.5-14.5) % Plt Count 222 (130-400) K/uL MPV 9.2 L (9.4-12.4) fL Immature Gran % (Auto) 0.6 % Neut % (Auto) 84.6 % Lymph % (Auto) 7.0 % [place] % (Auto) 7.0 % Eos % (Auto) 0.4 % Baso % (Auto) 0.4 % Neut # (Auto) 6.13 (1.40-6.50) K/uL Lymph # (Auto) 0.51 L (1.2-3.4) K/uL [place] # (Auto) 0.51 (0.11-0.59) K/uL Eos # (Auto) 0.03 (0-0.50) K/uL Baso # (Auto) 0.03 (0-0.2) K/uL Immature Gran # (Auto) 0.04 (0.01-0.20) K/uL Sodium 128 L (136-145) mmol/L Potassium 4.4 (3.5-5.1) mmol/L Chloride 100 (98-107) mmol/L Carbon Dioxide 19 L (21-32) mmol/L Anion Gap 9 (3-11) BUN 18 (6-23) mg/dl Creatinine 0.96 (0.6-1.4) mg/dl Est Cr Clr Drug Dosing 79.5 ml/min Est GFR ( Amer) 95.1 ml/min Est GFR (Non-Af Amer) 82.0 ml/min BUN/Creatinine Ratio 18.8 (10-20) Glucose 118 H (70-99(Fasting)) mg/dl Calcium 8.5 L (8.6-10.3) mg/dl Total Bilirubin 0.3 (0.2-1.0) mg/dl AST 13 (13-39) U/L ALT 8 (7-52) U/L Alkaline Phosphatase 46 (34-104) U/L Total Creatine Kinase 47 (30-223) U/L Total Protein 6.5 (6.0-8.3) gm/dl Albumin 4.0 (3.4-5.0) gm/dl Globulin 2.5 (2.5-4.0) gm/dl Albumin/Globulin Ratio 1.6 (0.9-2) Urine Color Red Urine Appearance Turbid A (Clear) Urine pH (4.5-7.5) Ur Specific [place] 1.022 (1.000-1.030) Urine Protein (Negative) Urine Glucose (UA) (Negative) Urine Ketones (Negative) Urine Blood (Negative) Urine Nitrite (Negative) Urine Bilirubin (Negative) Urine Urobilinogen (Negative) Ur Leukocyte Esterase (Negative) Urine RBC >30 H (0-4) /hpf Urine WBC >30 H (0-5) /hpf Ur Epithelial Cells 5-10 H (0-5) /lpf Urine Bacteria 1+ H (Negative) Hyaline Casts 0-5 (0-5) /lpf [facility] Narrative 1912: The patient was evaluated in room B3. A complete history and physical exam was performed Cardiac monitoring: An order was placed for continuous cardiac monitoring. The monitor shows a rate of 70 with sinus rhythm interpreted by co 2045: Vital signs stable. Sodium 128. Hemoglobin 8.2 down from 11.32 weeks ago. Shepherd draining well. Urinalysis concerning for infection. Discussed case with Dr. Coy urology patient will follow-up for regular scheduled appointment on for cystoscopy. DISCHARGE - Plan of care discussed with patient and questions answered. The patient was given both verbal and printed discharge instructions. The patient verbalized understanding and ability to comply. The patient is to seek outpatient follow up as noted in the discharge instructions. The patient verbalized understanding and ability to comply. The patient is discharged in stable condition. The patient was instructed to return for worseni ng symptoms. 2145: At time of discharge nursing informing that the patient was having difficulty urinating and a lot of abdominal pain again. Shepherd catheter was flushed and large clots started pouring out with a lot of bloody urine. Catheter keeps clotting. We will switch patient to continuous irrigation with three-way catheter. Discussed the case with Dr. Coy who states he will see the patient on consult tomorrow morning. Patient be admitted to the [facility] team. Impression & Plan Hematuria, Urinary tract infection, Hyponatremia Discharge Plan Visit Data Chief Complaint: Urinary Symptoms Stated Complaint: URINE SX ED Provider: Shaheen Arauz Discharge Problem: Hematuria, Urinary tract infection, Hyponatremia Patient Disposition: Admitted As Inpatient Discharge Instructions Krames/Other Patient Handouts: What is Hematuria?, Leg Bag Care Dc, ED Shepherd Catheter, Care, ED Blood in the Urine, ED [facility] UTI Activity Restrictions/Additional Instructions: Follow-up for regular scheduled appointment for cystoscopy on Friday. Forms Stand Alone Forms: My [facility], Virtual Emergency Department, Important Visit Information Prescriptions Prescriptions: New ciprofloxacin HCl 500 mg tablet 500 mg PO BID Qty: 14 0RF No Action mirtazapine 30 mg tablet 15 mg PO HS Patient Comments: * 1/2 TABLET - 1 TABLET AT BEDTIME abiraterone [Zytiga] 500 mg tablet 1,000 mg PO DAILY Rx Instructions: must be taken on empty stomach, at least 1 hr before or 2 hrs after a meal/food prednisone 5 mg tablet 5 mg PO BID gabapentin 300 mg capsule 300 mg PO BID enoxaparin 30 mg/0.3 mL syringe 30 mg SQ Q24H Qty: 90 0RF losartan [Cozaar] 50 mg tablet 50 mg PO HS multivitamin Tablet 1 tab PO QAM ascorbic acid (vitamin C) [Vitamin C] 1,000 mg Tablet 1 g PO QAM atorvastatin 20 mg Tablet 20 mg PO HS cyanocobalamin (vitamin B-12) [Vitamin B-12] 2,500 mcg Tablet, Sublingual 2,500 mcg SUBLINGUAL QAM metoprolol tartrate 100 mg Tablet 100 mg PO BID allopurinol 100 mg Tablet 100 mg PO QPM ferrous sulfate [iron] 325 mg (65 mg iron) Tablet 325 mg PO QAM folic acid 1 mg Tablet 1 mg PO QAM omeprazole magnesium [Prilosec OTC] 20 mg Tablet,Delayed Release (Dr/Ec) 20 mg PO QAM cholecalciferol (vitamin D3) [Vitamin D3] 2,000 unit Capsule 2,000 unit PO QAM Referrals Referrals: Nam Carlson [Primary Care Provider] - (Follow-up in 1-7 days.) Billy Coy MD [Physician] - (Follow-up in 1-7 days.)
[2023-06-03] MEDS ORDERED: OPTIRAY 320 100ml IV ONE (23:02)
--- NOTE | 2023-06-03 23:40 | CT Scan Report ---
Exam(s): CT ABDOMEN + PELVIS With Contrast IV Amt: 93 ML OPTIRAY 320 EXAM: CT Abdomen and Pelvis With Intravenous Contrast CLINICAL HISTORY: Reason for exam: Hematuria, obstruction, h/o prostate radiation. TECHNIQUE: Axial computed tomography images of the abdomen and pelvis with intravenous contrast. Automated exposure control was utilized for the study. A dose lowering technique was utilized adhering to the principles of ALARA. CONTRAST: Patient received 93 ML OPTIRAY 320 of IV contrast COMPARISON: CT abdomen pelvis July 01, 2019. FINDINGS: Lung bases: Unremarkable. No mass. No consolidation. ABDOMEN: Liver: Unremarkable. No mass. Gallbladder and bile ducts: Unremarkable. No calcified stones. No ductal dilation. Pancreas: Unremarkable. No mass. No ductal dilation. Spleen: Unremarkable. No splenomegaly. Adrenals: Unremarkable. No mass. Kidneys and ureters: See below. Stomach and bowel: Diverticulosis, without acute diverticulitis. No small bowel obstruction. No free intraperitoneal air. PELVIS: Appendix: No findings to suggest acute appendicitis. Bladder: Large-volume hematuria within the urinary bladder, which contains a Shepherd catheter. Recent prostatectomy. Mild fullness of the bilateral renal collecting systems. No delayed nephrogram hydronephrosis. Reproductive: Unremarkable as visualized. ABDOMEN and PELVIS: Intraperitoneal space: Unremarkable. No free air. No significant fluid collection. Bones/joints: Degenerative changes of the spine. No acute fracture. No dislocation. Soft tissues: Unremarkable. Vasculature: Atherosclerotic changes of the aorta. No abdominal aortic aneurysm. Lymph nodes: Unremarkable. No enlarged lymph nodes. IMPRESSION: 1. Large-volume hematuria within the urinary bladder, which contains a Sehpherd catheter. Recent prostatectomy. Mild fullness of the bilateral renal collecting systems. No delayed nephrogram hydronephrosis. 2. Diverticulosis, without acute diverticulitis. No small bowel obstruction. No free intraperitoneal air. Electronically signed by: Mikal Jones MD 06/03/23 23:38 PM
[2023-06-03] MEDS ORDERED: ACETAMINOPHEN 325 MG TAB PO PRN (23:50)
[2023-06-04] MEDS: oxyBUTYnin chloride 5 MG TAB PO SCH ×3 (01:20→19:54)
[2023-06-04 06:54] LABS: Basophils # (auto) 0.03 K/uL (0-0.2); Basophils % (auto) 0.5 %; Eosinophils # (auto) 0.14 K/uL (0-0.50); Eosinophils % (auto) 2.2 %; Hematocrit (blood only) 21.6 % (42.0-52.0); Hemoglobin 7.5 g/dl (14.0-18.0); Immature Granulocytes # (auto) 0.03 K/uL (0.01-0.20); Immature Granulocytes % (auto) 0.5 %; Lymphocytes % (auto) 9.3 %; Mean Corpuscular Hemoglobin 36.6 pg (25.0-34.0); Mean Corpuscular Hgb Conc 34.7 g/dL (32.0-36.0); Mean Corpuscular Volume 105.4 fL (80.0-100.0); Mean Platelet Volume 9.1 fL (9.4-12.4); Monocytes # (auto) 0.65 K/uL (0.11-0.59); Monocytes % (auto) 10.1 %; Neutrophils # (auto) 4.97 K/uL (1.40-6.50); Neutrophils % (auto) 77.4 %; Platelet Count 198 K/uL (130-400); RDW Coefficient of Variation 13.2 % (11.5-14.5); RDW Standard Deviation 50.9 fL (36.4-46.3); Red Blood Count 2.05 M/uL (4.70-6.10); White Blood Count 6.42 K/ul (4.8-10.8)
--- NOTE | 2023-06-04 06:58 | Billing Data ---
Date of Service June 04, 2023 Coding Level of Care Code 07582 INT INP/OBS CARE
[2023-06-04 07:06] LABS: Calcium 8.5 mg/dl (8.6-10.3); Creatinine Clr Calc Pharmacy 117.2 ml/min; Est GFR (African American) 121.4 ml/min; Est GFR (Non-African American) 104.8 ml/min; Potassium 3.9 mmol/L (3.5-5.1)
[2023-06-04 07:18] LABS: RBC Morphology Unremarkable
--- NOTE | 2023-06-04 07:59 | Urology Consultation ---
Date of Consultation June 04, 2023 Assessment & Plan (1) Gross hematuria: (2) Urinary retention: Plan 67yo/M with urinary retention and gross hematuria with clots. Afebrile, vitals stable. Labs today reviewed-WBC 6.42, creatinine 0.60, hemoglobin 7.3. Patient to receive PRBC transfusion this morning per primary team. CTAP on admission shows large volume hematuria in bladder, mild fullness b/l renal collecting system. Urine culture pending, on IV ceftriaxone. Catheter exchanged by nursing staff this morning due to being clogged. Currently with a 20Fr three-way Shepherd catheter draining light pink to red urine with CBI wide open. Continue to monitor. Ok to hand irrigate as needed. We will make NPO for now in the event he needs formal clot evac in the operating room later today. Continue to trend labs. Continue antibiotics and tailor as culture data becomes available. Anticoagulation on hold. Urology will continue to monitor closely. Patient reassessed this morning with Dr. Coy. Attempted bedside irrigation/clot evacuation, but the catheter was difficult to irrigate and we were unable to evacuate much clot. Hold CBI nursing aware. Will plan to proceed to OR today for cystoscopy, clot evacuation, possible fulguration with Dr. Coy. Risks and benefits discussed with patient. OR notified. Covered with scheduled IV ceftriaxone. Keep NPO. Urology will follow. Supervising Physician Co-Signing Physician Notes Discussed patient with LUZ. Agree with plan. To OR for cysto, clot evac, fulguration. Consent obtained. History of Present Illness Attending Physician: Vidal Jerez MD History of Present Illness 67-year-old male with past medical history of prostate cancer s/p prostatectomy in 2006, status post orchiectomy in 2018, radiation-induced cystitis, DVT, pulmonary embolism who presented to the hospital due to difficulties with urination. In the ED patient had a 22Fr Shepherd catheter placed and was draining w/hematuria. Patient reported 2 recent episodes of urinary retention over the past 2 weeks and was scheduled to have an outpatient cystoscopy with Dr. Pappas on 06/06. Patient was still having pain and discomfort even with Shepherd placement as well as hematuria w/clots with a two-point drop in hemoglobin.He was admitted to medicine service for further management and care. CT abd pelvis 7/25 - Large-volume hematuria within the urinary bladder, which contains a Shepherd catheter. Recent prostatectomy.Mild fullness of the bilateral renal collecting systems. No delayed nephrogram hydronephrosis. Patient examined at bedside this AM. Patient had an episode of painful bladder spasms early this morning. His 3 way catheter became clogged and numerous attempts were made by nursing to irrigate catheter. His catheter was exchanged by staff and they were then able to evacuate numerous clots. He is currently resting in bed in no acute distress. The catheter is intact and draining light red urine with CBI wide open. Patient has a history of DVT/PE. On Lovenox, but has not taken since 05/19 per chart review. Remains on hold. Allergies Allergy/AdvReac Type Severity Reaction Status Date / Time No Known Drug Allergies Allergy Nkda Verified 05/29/23 10:32 Home Medications Medication Instructions Recorded Confirmed Type allopurinol 100 mg tablet 100 mg PO QPM 08/25/18 05/29/23 History ascorbic acid (vitamin C) 1,000 mg 1 g PO QAM 08/25/18 05/29/23 History tablet (Vitamin C) atorvastatin 20 mg tablet 20 mg PO HS 08/25/18 05/29/23 History cholecalciferol (vitamin D3) 50 2,000 unit PO QAM 08/25/18 05/29/23 History mcg (2,000 unit) capsule (Vitamin D3) cyanocobalamin (vitamin B-12) 2,500 mcg sublingual QAM 08/25/18 05/29/23 History 2,500 mcg sublingual tablet (Vitamin B-12) ferrous sulfate 325 mg (65 mg 325 mg PO QAM 08/25/18 05/29/23 History iron) tablet (iron) folic acid 1 mg tablet 1 mg PO QAM 08/25/18 05/29/23 History metoprolol tartrate 100 mg tablet 100 mg PO BID 08/25/18 05/29/23 History multivitamin 1 tab PO QAM 08/25/18 05/29/23 History omeprazole magnesium 20 mg 20 mg PO QAM 08/25/18 05/29/23 History tablet,delayed release (Prilosec OTC) losartan 50 mg tablet (Cozaar) 50 mg PO HS 05/05/19 05/29/23 History mirtazapine 30 mg tablet 15 mg PO HS 05/10/20 05/29/23 History abiraterone 500 mg tablet (Zytiga) 1,000 mg PO DAILY 02/27/23 05/29/23 History gabapentin 300 mg capsule 300 mg PO BID 02/27/23 05/29/23 History prednisone 5 mg tablet 5 mg PO BID 02/27/23 05/29/23 History enoxaparin 30 mg/0.3 mL 30 mg (0.3 mL) subcut Q24H #90 05/17/23 05/29/23 Rx subcutaneous syringe SYRINGES ciprofloxacin HCl 500 mg tablet 500 mg PO BID #14 tabs 06/03/23 Rx Patient History Medical History Acute radiation cystitis Carpal tunnel syndrome Cervical radiculopathy at C8 Cervical stenosis of spinal canal (06/20/14) Chronic anticoagulation DVT of lower extremity (deep venous thrombosis) Elevated liver function tests Gout Gross hematuria Hearing deficit WEARS HEARING AIDS History of DVT (deep vein thrombosis) RLE DVT 2013; POST-OP History of prostate cancer S/P PROSTATECTOMY; RADIATION (2006) History of pulmonary embolism (~2006) HLD (hyperlipidemia) Hx of fracture of hip RIGHT WITH ORIF Hx of pulmonary embolus 2006; POST-OP Hyperlipemia Hypertension Incontinence 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 Lumbar stenosis with neurogenic claudication Neoplasm of prostate Neutropenia Prostate cancer (~2006) Urinary retention Valvular disease MILD NC/TI Surgical History History of back surgery History of cystoscopy History of prostatectomy "TURP" History of removal of testicle Hx of cervical spine surgery Status post hip surgery Family History Unknown Heart disease Hypertension Father Prostate cancer Other Hearing deficit Social History Smoking Status: Former smoker Tobacco Type: Cigarettes Second Hand Exposure: No; Do You Dip or Chew Tobacco: No; Tobacco Cessation Education Requested by Patient: No Hx Alcohol Use: Yes Alcohol type: beer Hx Substance Use: Yes Last Used Substance: Unknown Last Used Substance Other:: Used very little. Substance Use Type Other:: Vape (Medical card). Preferred Language: Syriac Communication Ability: Effective Visual Impairment: No Limitations Hearing Ability: Use of Hearing Aid Prepared [employer] Associate Required: No Beliefs That Will Affect Care: None marital status: Current Living Situation: Spouse current occupational status: disabled Other Information That Helps Us Care for You: No Feels Safe at Home: Yes Safety Concerns: Feels Safe At This Time Childhood Exposure to Second-Hand Smoke: No caffeine: Yes during the past year weight has: decreased > 10 lbs Assistive Devices: Glasses Review of Systems Review of Systems: All systems reviewed & are unremarkable except as noted in HPI & below Physical Exam Constitutional: well developed and well nourished; no acute distress Respiratory: normal respiratory effort; no respiratory distress and no labored breathing Musculoskeletal: Head/Neck/Chest: normocephalic Skin: No visible rashes or lesions to exposed skin areas Neurologic: moves all extremities and awake Psychiatric: A+Ox3, euthymic affect Genitourinary: 20Fr Shepherd intact, draining light red urine with CBI wide open Results & Data Vital Signs (Past 12 Hours) Vital Signs Temp Pulse Resp BP Pulse Ox O2 Del Method O2 Flow Rate 06/04/23 07:36 Nasal Cannula 2 06/04/23 07:09 36.8 C 77 22 131/79 100 Nasal Cannula 2 06/03/23 23:45 Room Air 06/03/23 23:45 Room Air 06/03/23 23:45 36.6 C 54 L 18 174/86 H 99 Room Air 06/03/23 23:45 36.6 C 54 L 18 174/86 H 99 Room Air 06/03/23 23:33 55 L 16 98 Room Air 06/03/23 23:10 61 18 143/98 H 98 Room Air 06/03/23 23:32 Room Air PG Care Time/CCT Total # of Minutes Spent Total Time Spent with Patient: Total time spent is greater than 50% in coordination of care (as documented) at patient's floor/unit and/or counseling patient: Coding Level of Care Code 61261 INT INP/OBS CARE 2/55MIN Diagnoses Gross hematuria R31.0 Urinary retention R33.9
[2023-06-04] MEDS ORDERED: SODIUM CHLORIDE 0.9% 250 ML IV PRN (08:34)
--- NOTE | 2023-06-04 08:34 | Hospitalist Progress Note ---
Date of Service June 04, 2023 Assessment & Plan (1) Urinary retention: Plan: Patient with 2 episodes of urinary retention over the past 2 weeks and was scheduled to have a cystoscope on 06/06. with ongoing pain/discomfort despite rosario placement Overnight blockage and flused, new [address] rosario inserted/draining light red tinged urine at present. Hgb baseline in 10.8-12 range, 8.2 on admission CTAP on admission with Large-volume hematuria within the urinary bladder, which contains a Rosario catheter. Recent prostatectomy. Hgb dropped to 7.5 this morning, clearing in urine however will obtain blood consent for transfusion 2 u PRBC at direction of supervising provider. Will repeat CBC this afternoon to ensure improving. Urology on consult, appreciate recs/assistance Urology to eval this afternoon to see if need for OR/fulgration/etc Added morphine IV for pain control. Only had been ordered Tylenol, while NPO. Monitor response. Last BM reported this morning NPO until eval this afternoon Monitor repeat labs, holding Lovenox (held since 05/19 per patient) -- defer to Urology on safety for resuming. Hx PE/DVT s/p IVF filter. Prior on Eliquis BID but had signifciatn bleeding on this med due to ongoing radiation cystitis. (2) Hematuria: Plan: After Rosario placement done in the ED, patient started having clots and dark red urine in Rosario bag. CTAP as above, urology on consult.. Holding further anticoagulation (3) Urinary tract infection: Plan: Given 2000 mg ceftriaxone in the ED, continued Urine cx pending --monitor (4) History of pulmonary embolism: Plan: Patient with history of pulmonary embolism. Patient was told did not take his Lovenox since 05/19. However and unable to find any where in the chart where patient was instructed to not take Lovenox (saw Dr Linares note, rec to continue holding) Does have IVC filter Continuing to hold Lovenox -- resume when able per instructions w/ urology (5) Prostate cancer metastatic to bone: Plan: Status post prostatectomy back in 2006. Follows with oncology outpatient for metastatic cancer. (6) HLD (hyperlipidemia): Plan: We will hold patient's atorvastatin at this time. May restart once cleared from urology standpoint/no longer NPO (7) Hypertension: Plan: Chronic, stable Continue metoprolol 100mg BID, losartan 50mg (8) Hyponatremia: Plan: improved on repeat. will check tsh for completeness. ?pain related monitor on repeat (9) S/P IVC filter: Plan: noted hx (10) Acute retention of urine: Plan: now w/ rosario - management per urology (11) Acute blood loss anemia: Plan: acute drop from baseline, check anemia labs. likely from bleeding from anticoagulation/radiation cystitis, had been holding his lovenox 2u PRBC as above, monitor CBC on repeat/rosario output. CBI per urology Plan DVT ppx: SCDs, patient was holding home Lovenox since the . We will hold due to possibility of bleed at this time. SCDs ordered. No evidence for DVT at present but will need to monitor. Does have IVC filter to note continued inpatient stay Admission and Anticipated Discharge Date Admission Date: June 03, 2023 Supervising Physician Co-Signing Physician Notes The patient was not seen by me. The chart was reviewed. Case discussed with CAROLNIA Diamond. Agree with assessment and plan Subjective Patient evaluated this morning. Ongoing hematuria. NPO until eval by Dr Coy after surgery center to see if need for OR. Feeling weak/exhausted. Discussed blood/transfusion, obtained consent for 2 units and will transfuse/monitor repeat blood counts. Prior transfusion without reaction noted by patient. No chest pain/shortness of breath. Having some discomfort from rosario, only ordered tylenol. No issues w/ pain meds in past, moved his bowels this morning. Will order dose of morphine/monitor response. Questions/concerns addressed at this time. Physical Exam Physical Exam: General: WN male resting in bed, NAD, general pallor noted, tired appearing/fatigued HEENT: head normocephalic, atraumatic, mmm, trachea midline, towel to forehead for comfort Resp: no distress/tachypnea, no cough, no wheezing/rales, on room air CV: RRR, no significant m/r/g, no calf edema/tenderness GI: +BS throughout, soft/suprapubic tenderness, no guarding/rebound : rosario with light red urine draining, CBI MSK/Neuro: no focal deficits, able to follow commands, no slurred speech/facial droop Psych: alert/oriented, cooperative with care Results & Data Results & Data Vital Signs (Past 12 Hours) Vital Signs Temp Pulse Resp BP Pulse Ox O2 Del Method O2 Flow Rate 06/04/23 07:46 36.7 C 81 105/68 99 Room Air 06/04/23 07:36 Nasal Cannula 2 06/04/23 07:09 36.8 C 77 22 131/79 100 Nasal Cannula 2 06/03/23 23:45 Room Air 06/03/23 23:45 Room Air 06/03/23 23:45 36.6 C 54 L 18 174/86 H 99 Room Air 06/03/23 23:45 36.6 C 54 L 18 174/86 H 99 Room Air 06/03/23 23:33 55 L 16 98 Room Air 06/03/23 23:10 61 18 143/98 H 98 Room Air 06/03/23 23:32 Room Air Laboratory Results 06/04/23 06/04/23 06/03/23 Range/Units 06:10 06:10 19:22 WBC 6.42 (4.8-10.8) K/ul RBC 2.05 L (4.70-6.10) M/uL Hgb 7.5 L (14.0-18.0) g/dl Hct 21.6 L (42.0-52.0) % MCV 105.4 H (80.0-100.0) fL MCH 36.6 H (25.0-34.0) pg MCHC 34.7 (32.0-36.0) g/dL RDW Std Deviation 50.9 H (36.4-46.3) fL RDW Coeff of Eliezer 13.2 (11.5-14.5) % Plt Count 198 (130-400) K/uL MPV 9.1 L (9.4-12.4) fL Immature Gran % (Auto) 0.5 % Neut % (Auto) 77.4 % Lymph % (Auto) 9.3 % [place] % (Auto) 10.1 % Eos % (Auto) 2.2 % Baso % (Auto) 0.5 % Neut # (Auto) 4.97 (1.40-6.50) K/uL Lymph # (Auto) 0.60 L (1.2-3.4) K/uL [place] # (Auto) 0.65 H (0.11-0.59) K/uL Eos # (Auto) 0.14 (0-0.50) K/uL Baso # (Auto) 0.03 (0-0.2) K/uL Immature Gran # (Auto) 0.03 (0.01-0.20) K/uL RBC Morphology Unremarkable Sodium 131 L (136-145) mmol/L Potassium 3.9 (3.5-5.1) mmol/L Chloride 100 (98-107) mmol/L Carbon Dioxide 25 (21-32) mmol/L Anion Gap 6 (3-11) BUN 12 (6-23) mg/dl Creatinine 0.60 D (0.6-1.4) mg/dl Est Cr Clr Drug Dosing 117.2 ml/min Est GFR ( Amer) 121.4 ml/min Est GFR (Non-Af Amer) 104.8 ml/min BUN/Creatinine Ratio 20.0 (10-20) Glucose 122 H (70-99(Fasting)) mg/dl Calcium 8.5 L (8.6-10.3) mg/dl Total Bilirubin (0.2-1.0) mg/dl AST (13-39) U/L ALT (7-52) U/L Alkaline Phosphatase (34-104) U/L Total Creatine Kinase (30-223) U/L Total Protein (6.0-8.3) gm/dl Albumin (3.4-5.0) gm/dl Globulin (2.5-4.0) gm/dl Albumin/Globulin Ratio (0.9-2) Urine Color Red Urine Appearance Turbid A (Clear) Urine pH (4.5-7.5) Ur Specific Veteran 1.022 (1.000-1.030) Urine Protein (Negative) Urine Glucose (UA) (Negative) Urine Ketones (Negative) Urine Blood (Negative) Urine Nitrite (Negative) Urine Bilirubin (Negative) Urine Urobilinogen (Negative) Ur Leukocyte Esterase (Negative) Urine RBC >30 H (0-4) /hpf Urine WBC >30 H (0-5) /hpf Ur Epithelial Cells 5-10 H (0-5) /lpf Urine Bacteria 1+ H (Negative) Hyaline Casts 0-5 (0-5) /lpf 06/03/23 06/03/23 Range/Units 19:21 19:21 WBC 7.25 (4.8-10.8) K/ul RBC 2.27 L (4.70-6.10) M/uL Hgb 8.2 L (14.0-18.0) g/dl Hct 24.3 L (42.0-52.0) % MCV 107.0 H (80.0-100.0) fL MCH 36.1 H (25.0-34.0) pg MCHC 33.7 (32.0-36.0) g/dL RDW Std Deviation 51.6 H (36.4-46.3) fL RDW Coeff of Eliezer 13.3 (11.5-14.5) % Plt Count 222 (130-400) K/uL MPV 9.2 L (9.4-12.4) fL Immature Gran % (Auto) 0.6 % Neut % (Auto) 84.6 % Lymph % (Auto) 7.0 % [place] % (Auto) 7.0 % Eos % (Auto) 0.4 % Baso % (Auto) 0.4 % Neut # (Auto) 6.13 (1.40-6.50) K/uL Lymph # (Auto) 0.51 L (1.2-3.4) K/uL [place] # (Auto) 0.51 (0.11-0.59) K/uL Eos # (Auto) 0.03 (0-0.50) K/uL Baso # (Auto) 0.03 (0-0.2) K/uL Immature Gran # (Auto) 0.04 (0.01-0.20) K/uL RBC Morphology Sodium 128 L (136-145) mmol/L Potassium 4.4 (3.5-5.1) mmol/L Chloride 100 (98-107) mmol/L Carbon Dioxide 19 L (21-32) mmol/L Anion Gap 9 (3-11) BUN 18 (6-23) mg/dl Creatinine 0.96 (0.6-1.4) mg/dl Est Cr Clr Drug Dosing 79.5 ml/min Est GFR ( Amer) 95.1 ml/min Est GFR (Non-Af Amer) 82.0 ml/min BUN/Creatinine Ratio 18.8 (10-20) Glucose 118 H (70-99(Fasting)) mg/dl Calcium 8.5 L (8.6-10.3) mg/dl Total Bilirubin 0.3 (0.2-1.0) mg/dl AST 13 (13-39) U/L ALT 8 (7-52) U/L Alkaline Phosphatase 46 (34-104) U/L Total Creatine Kinase 47 (30-223) U/L Total Protein 6.5 (6.0-8.3) gm/dl Albumin 4.0 (3.4-5.0) gm/dl Globulin 2.5 (2.5-4.0) gm/dl Albumin/Globulin Ratio 1.6 (0.9-2) Urine Color Urine Appearance (Clear) Urine pH (4.5-7.5) Ur Specific Veteran (1.000-1.030) Urine Protein (Negative) Urine Glucose (UA) (Negative) Urine Ketones (Negative) Urine Blood (Negative) Urine Nitrite (Negative) Urine Bilirubin (Negative) Urine Urobilinogen (Negative) Ur Leukocyte Esterase (Negative) Urine RBC (0-4) /hpf Urine WBC (0-5) /hpf Ur Epithelial Cells (0-5) /lpf Urine Bacteria (Negative) Hyaline Casts (0-5) /lpf Diagnostic Findings Abdomen/Pelvis CT 06/03/23 22:19 Exam(s): CT ABDOMEN + PELVIS With Contrast IV Amt: 93 ML OPTIRAY 320 EXAM: CT Abdomen and Pelvis With Intravenous Contrast CLINICAL HISTORY: Reason for exam: Hematuria, obstruction, h/o prostate radiation. TECHNIQUE: Axial computed tomography images of the abdomen and pelvis with intravenous contrast. Automated exposure control was utilized for the study. A dose lowering technique was utilized adhering to the principles of ALARA. CONTRAST: Patient received 93 ML OPTIRAY 320 of IV contrast COMPARISON: CT abdomen pelvis July 01, 2019. FINDINGS: Lung bases: Unremarkable. No mass. No consolidation. ABDOMEN: Liver: Unremarkable. No mass. Gallbladder and bile ducts: Unremarkable. No calcified stones. No ductal dilation. Pancreas: Unremarkable. No mass. No ductal dilation. Spleen: Unremarkable. No splenomegaly. Adrenals: Unremarkable. No mass. Kidneys and ureters: See below. Stomach and bowel: Diverticulosis, without acute diverticulitis. No small bowel obstruction. No free intraperitoneal air. PELVIS: Appendix: No findings to suggest acute appendicitis. Bladder: Large-volume hematuria within the urinary bladder, which contains a Rosario catheter. Recent prostatectomy. Mild fullness of the bilateral renal collecting systems. No delayed nephrogram hydronephrosis. Reproductive: Unremarkable as visualized. ABDOMEN and PELVIS: Intraperitoneal space: Unremarkable. No free air. No significant fluid collection. Bones/joints: Degenerative changes of the spine. No acute fracture. No dislocation. Soft tissues: Unremarkable. Vasculature: Atherosclerotic changes of the aorta. No abdominal aortic aneurysm. Lymph nodes: Unremarkable. No enlarged lymph nodes. IMPRESSION: 1. Large-volume hematuria within the urinary bladder, which contains a Rosario catheter. Recent prostatectomy. Mild fullness of the bilateral renal collecting systems. No delayed nephrogram hydronephrosis. 2. Diverticulosis, without acute diverticulitis. No small bowel obstruction. No free intraperitoneal air. Electronically signed by: Mikal Jones MD 06/03/23 23:38 PM PG Care Time/CCT Total # of Minutes Spent Total Time Spent with Patient: Total time spent is greater than 50% in coordination of care (as documented) at patient's floor/unit and/or counseling patient: Coding Level of Care Code 23369 SUB INP/OBS CARE 3/50MIN Diagnoses Urinary retention R33.9 Hematuria R31.0 Hematuria type: gross Urinary tract infection N39.0 Hematuria presence: with hematuria History of pulmonary embolism Z86.711 Prostate cancer metastatic to bone C61; C79.51 HLD (hyperlipidemia) E78.5 Hypertension I10 Hyponatremia E87.1 S/P IVC filter Z95.828 Acute retention of urine R33.8 Acute blood loss anemia D62 (2) Hematuria Hematuria type: gross Qualified Code(s): R31.0 - Gross hematuria (3) Urinary tract infection Hematuria presence: with hematuria
[2023-06-04] MEDS ORDERED: MoRPHine SULFATE 2 MG/ML CARP IV PRN (09:19)
[2023-06-04 09:45] LABS: Hematocrit (blood only) 21.3 % (42.0-52.0); Hemoglobin 7.3 g/dl (14.0-18.0)
[2023-06-04] MEDS: METOPROLOL TARTRATE 100 MG TAB PO SCH ×2 (09:49→19:55)
[2023-06-04] MEDS ORDERED: ONDANSETRON INJ 2 MG/ML 2 ML VIAL IV PRN (09:58)
[2023-06-04] MEDS ORDERED: ACETAMINOPHEN 1,000 MG/100 ML VIAL IV PRN (09:58)
[2023-06-04 10:14] LABS: Thyroid Stimulating Hormone 6.46 uIu/ml (0.300-4.500)
[2023-06-04 10:49] LABS: T4 Free Thyroxine 0.98 ng/dl (0.61-1.60)
[2023-06-04] MEDS ORDERED: PROPOFOL IV EMULSION 10 MG/ML 20 ML VIAL IV ONE (12:03)
[2023-06-04] MEDS ORDERED: ONDANSETRON INJ 2 MG/ML 2 ML VIAL ONE (12:03)
[2023-06-04] MEDS ORDERED: LIDOCAINE 2% 2 ML VIAL/AMP(20MG/ML) INFIL ONE (12:03)
[2023-06-04] MEDS ORDERED: MIDAZOLAM HCL 1 MG/ML 2ML VIAL ONE (12:04)
[2023-06-04] MEDS ORDERED: fentaNYL citrate PF 100 MCG/2 ML VIAL ONE ×2 (12:04→13:25)
--- NOTE | 2023-06-04 12:11 | Anesthesiology Consultation ---
Date of Service June 04, 2023 Assessment & Plan (1) Encounter for pre-operative examination: Chart Review Chart Review: Acceptable Risk for Surgery History Surgery Operation Date: 06/04/23 12:10 Proposed Procedures p Cystoscopy, Clot Evacuation, Fulguration - Billy Coy MD Height/Weight Height: 5 ft 8 in Weight: 81.7 kg Allergies Allergy/AdvReac Type Severity Reaction Status Date / Time No Known Drug Allergies Allergy Nkda Verified 05/29/23 10:32 Medications Home Medications Medication Instructions Recorded Confirmed Last Taken allopurinol 100 mg tablet 100 mg PO QPM 08/25/18 05/29/23 07/28/19 ascorbic acid (vitamin C) 1,000 mg 1 g PO QAM 08/25/18 05/29/23 07/29/19 tablet (Vitamin C) atorvastatin 20 mg tablet 20 mg PO HS 08/25/18 05/29/23 07/28/19 cholecalciferol (vitamin D3) 50 2,000 unit PO QAM 08/25/18 05/29/23 07/29/19 mcg (2,000 unit) capsule (Vitamin D3) cyanocobalamin (vitamin B-12) 2,500 mcg sublingual QAM 08/25/18 05/29/23 07/29/19 2,500 mcg sublingual tablet (Vitamin B-12) ferrous sulfate 325 mg (65 mg 325 mg PO QAM 08/25/18 05/29/23 07/29/19 iron) tablet (iron) folic acid 1 mg tablet 1 mg PO QAM 08/25/18 05/29/23 07/29/19 metoprolol tartrate 100 mg tablet 100 mg PO BID 08/25/18 05/29/23 07/29/19 multivitamin 1 tab PO QAM 08/25/18 05/29/23 07/29/19 omeprazole magnesium 20 mg 20 mg PO QAM 08/25/18 05/29/23 07/29/19 tablet,delayed release (Prilosec OTC) losartan 50 mg tablet (Cozaar) 50 mg PO HS 05/05/19 05/29/23 07/28/19 mirtazapine 30 mg tablet 15 mg PO HS 05/10/20 05/29/23 Unknown abiraterone 500 mg tablet (Zytiga) 1,000 mg PO DAILY 02/27/23 05/29/23 Unknown gabapentin 300 mg capsule 300 mg PO BID 02/27/23 05/29/23 Unknown prednisone 5 mg tablet 5 mg PO BID 02/27/23 05/29/23 Unknown enoxaparin 30 mg/0.3 mL 30 mg (0.3 mL) subcut Q24H #90 05/17/23 05/29/23 05/19/23 08:00 subcutaneous syringe SYRINGES ciprofloxacin HCl 500 mg tablet 500 mg PO BID #14 tabs 06/03/23 Unknown Active Medications Generic Name Dose Route Start Last Admin Trade Name Freq PRN Reason Stop Dose Admin Metoprolol Tartrate 100 mg 06/04/23 09:00 06/04/23 09:49 Metoprolol Tartrate 100 Mg Tab PO 07/04/23 08:59 100 mg BID AIDA Administration Morphine Sulfate 1 mg 06/04/23 09:19 06/04/23 09:41 Morphine Sulfate 2 Mg/Ml Carp IV 06/18/23 09:18 1 mg Q3H PRN Administration moderate to severe pain Oxybutynin Chloride 5 mg 06/04/23 00:15 06/04/23 09:49 Oxybutynin Chloride 5 Mg Tab PO 07/04/23 00:14 5 mg BID AIDA Administration Past Medical History Medical History Acute radiation cystitis Carpal tunnel syndrome Cervical radiculopathy at C8 Cervical stenosis of spinal canal (06/20/14) Chronic anticoagulation DVT of lower extremity (deep venous thrombosis) Elevated liver function tests Gout Gross hematuria Hearing deficit WEARS HEARING AIDS History of DVT (deep vein thrombosis) RLE DVT 2013; POST-OP History of prostate cancer S/P PROSTATECTOMY; RADIATION (2006) History of pulmonary embolism (~2006) HLD (hyperlipidemia) Hx of fracture of hip RIGHT WITH ORIF Hx of pulmonary embolus 2006; POST-OP Hyperlipemia Hypertension Incontinence 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 Lumbar stenosis with neurogenic claudication Neoplasm of prostate Neutropenia Prostate cancer (~2006) Urinary retention Valvular disease MILD CT/TI Past Family History Family History Unknown Heart disease Hypertension Father Prostate cancer Other Hearing deficit Past Surgical History Surgical History History of back surgery History of cystoscopy History of prostatectomy "TURP" History of removal of testicle Hx of cervical spine surgery Status post hip surgery Social History Smoking Status: Former smoker Do You Dip or Chew Tobacco: No Hx Alcohol Use: Yes Alcohol type: beer alcohol intake frequency: a few times a week Hx Substance Use: Yes substance use type: marijuana and other Substance Use Type Other:: Vape (Medical card). Last Used Substance: Unknown Last Used Substance Other:: Used very little. Physical Exam Vital Signs Last Vital Signs Temp 37.3 C 06/04/23 11:55 Pulse 61 06/04/23 11:55 Resp 18 06/04/23 11:41 BP 105/64 06/04/23 11:55 Pulse Ox 99 06/04/23 11:55 O2 Del Method Room Air 06/04/23 07:46 O2 Flow Rate 2 06/04/23 11:55 Testing Laboratory Results 06/04/23 09:25 06/04/23 06:10 Urine Color Red 06/03/23 19:22 Urine Appearance Turbid (Clear) A 06/03/23 19:22 Urine pH (4.5-7.5) 06/03/23 19:22 Ur Specific Hopkins 1.022 (1.000-1.030) 06/03/23 19:22 Urine Protein (Negative) 06/03/23 19:22 Urine Glucose (UA) (Negative) 06/03/23 19:22 Urine Ketones (Negative) 06/03/23 19:22 Urine Nitrite (Negative) 06/03/23 19:22 Ur Leukocyte Esterase (Negative) 06/03/23 19:22 Urine RBC >30 /hpf (0-4) H 06/03/23 19:22 Urine WBC >30 /hpf (0-5) H 06/03/23 19:22 Ur Epithelial Cells 5-10 /lpf (0-5) H 06/03/23 19:22 Blood Type A Positive 06/04/23 09:25 Antibody Screen NEGATIVE 06/04/23 09:25 Pt has received 1 unit of PRBC's since this CBC Electrocardiogram Date: 07/11/22 Findings: + NSR @ (61) Echocardiogram Date: 01/24/21 EF: 55% LV Function: normal Valvular Disease: + no significant valvular disease
[2023-06-04] MEDS ORDERED: ATROPINE SULFATE 0.1 MG/ML 10ML SYR IV PRN (12:54)
[2023-06-04] MEDS ORDERED: PROMETHAZINE HCL 6.25 MG in SODIUM CHLORIDE 0.9% 50 ML IV PRN (12:54)
[2023-06-04] MEDS ORDERED: fentaNYL citrate PF 100 MCG/2 ML VIAL IV PRN (12:54)
[2023-06-04] MEDS ORDERED: PHENYLEPHRINE 100MCG/ML 5ML SYR ONE (13:45)
[2023-06-04] MEDS ORDERED: ePHEDrine sulfate 50 MG/ML SYR ONE (13:45)
--- NOTE | 2023-06-04 13:47 | Post Operative Brief Note ---
PG Immediate Post Op with CF Date of Surgery June 04, 2023 Pre & Post Diagnosis Operation Date: 06/04/23 12:10 Pre-Op Diagnosis: Urinary Retention Post-Op Diagnosis: Urinary Retention I identified the patient and participated in the time-out.: Yes Procedure Operation Date: 06/04/23 12:10 Actual Procedures p Cystoscopy, Clot Evacuation, Fulguration(Not Applicable) - Billy Coy MD Surgeon Billy Coy MD Chief Deputy None Estimated Blood Loss 5 Findings See Below Significant clot burden in bladder probably 500 to 600 cc. There was a small area of oozing at the bladder neck otherwise no active bleeding. No masses. No concern for perforation. Urine clear on CBI at the conclusion of the case. Specimens Specimen Description: None per surgeon Anesthesia Type General Complications none
--- NOTE | 2023-06-04 14:42 | Operative Report ---
PG Post Operative Report Pre & Post Diagnosis Operation Date: 06/04/23 12:10 Pre-Op Diagnosis: Urinary Retention Post-Op Diagnosis: Urinary Retention I identified the patient and participated in the time-out.: Yes Procedure Operation Date: 06/04/23 12:10 Actual Procedures p Cystoscopy, Clot Evacuation, Fulguration(Not Applicable) - Billy Coy MD Surgeon Billy Coy MD Model Maker Apprentice None Estimated Blood Loss 5 Findings See Below Specimens None Drains 24Fr [address] catheter on CBI with 10cc in balloon Anesthesia Type General Complications none Indications 67 yo M with a history of prostate cancer s/p radiation and radiation cystitis who presents with hematuria. CT scan showed large clot burden in bladder. Unable to irrigate well at bedside. Decision made to take to OR. Description of Procedure After informed consent was obtained, the patient was transported to the operative suite. General anesthesia was induced. They were placed in dorsal lithotomy position and prepped and draped in sterile fashion. They received preoperative ceftriaxone. An appropriate surgical timeout was performed. 27 Samoan resectoscope was inserted per urethra and the bladder. Magana cystoscopy revealed a signifant clot burden. I attempt to irrigate this out with an ellik evacuator but was unsuccessful. Using a loop, I gently pulled some clot out of the bladder. I again tried the ellik evacuator and was able to break up the clot ball and remove 5-600cc of clot. There was a small amount of oozing at the bladder neck from the 10-2 oclock position that I cauterized. Otherwise, no active bleeding or tumors. There was no concern for perforation. Hemostasis was appropriate. Bladder was left full and scope was removed. 24Fr [address] way catheter inserted with return of clear urine. Balloon inflated with 10cc of water and CBI started. This concluded the end of the case. All counts correct at the end of the case. I was present, scrubbed and actively participated for the entirety of the procedure. I attest to the content of the Intraoperative Record and any orders documented therein. Any exceptions are noted below.
--- NOTE | 2023-06-04 14:58 | Anesthesiology Progress Note ---
Date of Service June 04, 2023 Anesthesia Post Procedure Vital Signs Vital Signs: Temp Pulse Pulse Pulse Resp BP BP 06/04/23 14:49 37.1 C 75 18 127/70 06/04/23 14:15 72 15 150/73 H 06/04/23 14:05 67 13 133/66 06/04/23 13:56 36.5 C 67 15 148/83 H 06/04/23 12:27 37.2 C 64 18 97/55 L 06/04/23 12:23 37.2 C 64 18 97/55 L 06/04/23 11:55 37.3 C 61 105/64 06/04/23 11:41 37.0 C 59 L 18 95/57 L 06/04/23 11:26 37.1 C 62 18 97/59 L 06/04/23 07:46 36.7 C 81 105/68 06/04/23 07:36 06/04/23 07:09 36.8 C 77 22 131/79 06/03/23 23:45 06/03/23 23:45 06/03/23 23:45 36.6 C 54 L 18 174/86 H 06/03/23 23:45 36.6 C 54 L 18 174/86 H 06/03/23 23:33 55 L 16 06/03/23 23:10 61 18 143/98 H 06/03/23 23:32 06/03/23 18:41 36.1 C L 67 20 118/71 Pulse Ox O2 Del Method O2 Flow Rate 06/04/23 14:49 94 Room Air 06/04/23 14:15 98 Room Air 06/04/23 14:05 98 Oxymask 10 06/04/23 13:56 99 Oxymask 10 06/04/23 12:27 94 06/04/23 12:23 94 Room Air 06/04/23 11:55 99 2 06/04/23 11:41 99 06/04/23 11:26 99 06/04/23 07:46 99 Room Air 06/04/23 07:36 Nasal Cannula 2 06/04/23 07:09 100 Nasal Cannula 2 06/03/23 23:45 Room Air 06/03/23 23:45 Room Air 06/03/23 23:45 99 Room Air 06/03/23 23:45 99 Room Air 06/03/23 23:33 98 Room Air 06/03/23 23:10 98 Room Air 06/03/23 23:32 Room Air 06/03/23 18:41 94 Room Air Pain Intensity Bilateral Lower Abdomen: Pain Intensity: 3 Transfer of Care Handoff Completed per policy Notes Mental Status: alert / awake / arousable Patient Amnestic to Procedure: Yes Nausea / Vomiting: adequately controlled Pain: adequately controlled Airway Patency, RR, SpO2: stable & adequate BP & HR: stable & adequate Hydration State: stable & adequate Anesthetic Complications: no major complications apparent
[2023-06-04] MEDS ORDERED: oxyCODONE HCL IR 5 MG TAB (IMMEDIATE RELEASE) PO PRN (16:32)
[2023-06-04 17:50] LABS: Folate (Folic Acid),Ser orPlas > 22.30 ng/ml (>5.38)
[2023-06-04 17:52] LABS: Vitamin B12 1179 pg/ml (180-914)
[2023-06-04] MEDS: ABIRATERONE ACETATE 250 MG PO SCH (19:54)
[2023-06-04 20:21] LABS: Hematocrit (blood only) 25.3 % (42.0-52.0); Hemoglobin 8.6 g/dl (14.0-18.0); Mean Corpuscular Hemoglobin 31.4 pg (25.0-34.0); Mean Corpuscular Volume 92.3 fL (80.0-100.0); Mean Platelet Volume 8.8 fL (9.4-12.4); Platelet Count 185 K/uL (130-400); RDW Coefficient of Variation 26.7 % (11.5-14.5); RDW Standard Deviation 87.6 fL (36.4-46.3); Red Blood Count 2.74 M/uL (4.70-6.10); White Blood Count 7.88 K/ul (4.8-10.8)
[2023-06-04] MEDS ORDERED: LOSARTAN POTASSIUM 50 MG TAB PO SCH (21:00)
[2023-06-04] MEDS: cefTRIAXone SODIUM 2,000 MG in DEXTROSE 5% 50 ML IV SCH (21:23)
[2023-06-05] MEDS: ABIRATERONE ACETATE 250 MG PO SCH (06:00)
[2023-06-05 06:18] LABS: Hematocrit (blood only) 23.2 % (42.0-52.0); Hemoglobin 7.8 g/dl (14.0-18.0); Mean Corpuscular Hemoglobin 30.8 pg (25.0-34.0); Mean Corpuscular Hgb Conc 33.6 g/dL (32.0-36.0); Mean Corpuscular Volume 91.7 fL (80.0-100.0); Mean Platelet Volume 8.8 fL (9.4-12.4); Platelet Count 165 K/uL (130-400); RDW Coefficient of Variation 26.7 % (11.5-14.5); Red Blood Count 2.53 M/uL (4.70-6.10); White Blood Count 7.03 K/ul (4.8-10.8)
[2023-06-05 06:44] LABS: Albumin Globulin Ratio 1.5 (0.9-2); Albumin Level 3.3 gm/dl (3.4-5.0); BUN Creatinine Ratio 12.5 (10-20); Bilirubin,Total 0.6 mg/dl (0.2-1.0); Calcium 7.9 mg/dl (8.6-10.3); Creatinine Clr Calc Pharmacy 109.8 ml/min; Est GFR (African American) 118.3 ml/min; Globulin 2.2 gm/dl (2.5-4.0); Magnesium 1.9 mg/dl (1.7-2.4); Potassium 3.7 mmol/L (3.5-5.1); Total Protein 5.5 gm/dl (6.0-8.3)
--- NOTE | 2023-06-05 08:07 | Hospitalist Progress Note ---
Date of Service June 05, 2023 Assessment & Plan (1) Hematuria: Plan: Had rosario placement done in the ED, patient started having clots and dark red urine in Rosario bag. Patient with 2 episodes of urinary retention over the past 2 weeks and was scheduled to have a cystoscope on 06/06. with ongoing pain/discomfort despite rosario placement Hgb baseline in 10.8-12 range, 8.2 on admission CTAP on admission with Large-volume hematuria within the urinary bladder, which contains a Rosario catheter. Recent prostatectomy. Urology on consult Hgb dropped to 7.5 AM 06/04 s/p 2 u PRBC on 06/04 POD#1 s/p Cystoscopy, Clot Evacuation, Fulguration(Not Applicable) - Billy Coy MD on 06/04. * Per OR report, noting removal of ~500-600cc clot. No active bleeding but small amount of oozing at bladder neck was cauterized. 24F [address] catheter inserted with return of clear urine Hgb 7.8 on AM labs (06/05), 2 additional units PRBC ordered w/ 40mg IV lasix. Also 1gm IV calcium given >3 units of blood to prevent further bleeding risk HEMATURIA IMPROVING -- clear yellow urine in rosario at present Lovenox on Hold (had been held since 05/19 per patient, has hx extensive DVT, s/p IVC filter. SCDs in place in meantime)defer to Urology on safety for resuming Lovenox (prior eliquis use but w/ significant bleeding) Remains on Ceftriaxone given still on CBI to prevent issue Urine cx w/ KLEBSIELLA OXYTOCA on preliminary, pansensitive except cefazolin Rosario plan TBD by Urology Monitor labs on repeat. If hgb stable/improved and no further bleeding possible dc tomorrow. Will also check fecal occult given diarrhea to ensure no microscopic bleeding from there either CBC in AM (2) Urinary retention: Plan: 2nd to above improved since placement of rosario/OR for evacuation of clot (3) Urinary tract infection: Plan: Given 2000 mg ceftriaxone in the ED, continued Urine cx Kelbsiella as above, on ceftriaxone while inpatient and will continue while on CBI (4) History of pulmonary embolism: Plan: Patient with history of pulmonary embolism. Patient was told did not take his Lovenox since 05/19. However and unable to find any where in the chart where patient was instructed to not take Lovenox (saw Dr Linares note, rec to continue holding) Does have IVC filter Continuing to hold Lovenox -- resume when able per instructions w/ urology (5) Prostate cancer metastatic to bone: Plan: Status post prostatectomy back in 2006. Follows with oncology outpatient for metastatic cancer. (6) HLD (hyperlipidemia): Plan: Resumed atorvastatin (7) Hypertension: Plan: Chronic, stable Continue metoprolol 100mg BID, losartan 50mg Losartan held last evneing post-op to prevent hypotension Giving lasix w/ PRBC and will likely be able to resume losartan for tomorrow (8) Hyponatremia: Plan: N1 128 on admit, hypovolemia/anemia from hematuria as above. IVF provided as well as PRBC Na improved to 135 this morning TSH elevated but T4 wnl and rec outpt f/u for repeat check (9) S/P IVC filter: Plan: noted hx (10) Acute retention of urine: Plan: now w/ rosario - management per urology (11) Acute blood loss anemia: Plan: acute drop from baseline, check anemia labs. 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 Does have IVC filter to note. SCDs ordered and had been wearing. Not on patient this morning but asked RN to place back on. No evidence for DVT at present but will need to monitor. continued inpatient stay, hopeful dc tomorrow pending labs/urine appearance Admission and Anticipated Discharge Date Admission Date: June 03, 2023 Supervising Physician Co-Signing Physician Notes The patient was not seen by me. The chart was reviewed. Case discussed with CAROLINA Diamond. Agree with assessment and plan Subjective Eval this morning. Doing well. Rosario draining clear yellow urine. Discussed hgb drop/OR findings and PRBC for today to boost stores above 8. Did have some loose stool x2, denies seeing any blood but will check for any microscopic bleeding. Holding off on anti-diarrheal at present given prior obstructions at moment. Abx for UTI, as discussed ferritin can be elevated from acute phase/infection as well. Discussed keeping overnight but if no further hematuria/blood counts improved/stable on repeat can consider discharging tomorrow. No increased leg edema/calf pain. Questions/concerns addressed at this time. Review of Systems Review of Systems: All systems reviewed & are unremarkable except as noted in HPI & below Physical Exam Physical Exam: General: WN male resting in bed, NAD, general pallor noted but improved from yesterday HEENT: head normocephalic, atraumatic, mmm, trachea midline, towel to forehead for comfort Resp: no distress/tachypnea, no cough, no wheezing/rales, on room air CV: RRR, no significant m/r/g, no increased calf edema/tenderness, pulses palpable GI: +BS throughout, soft/suprapubic tenderness, no guarding/rebound : rosario with clear yellow urine draining MSK/Neuro: no focal deficits, able to follow commands, no slurred speech/facial droop Psych: alert/oriented, cooperative with care Results & Data Results & Data Vital Signs (Past 12 Hours) Vital Signs Temp Pulse Resp BP BP Pulse Ox O2 Del Method 06/05/23 07:17 37.1 C 79 17 110/56 L 97 Room Air 06/05/23 07:13 37.2 C 68 18 118/68 96 Room Air 06/05/23 03:27 37.1 C 57 L 18 100/56 L 93 Room Air 06/04/23 22:56 36.8 C 61 18 116/67 96 Room Air 06/04/23 20:27 37.2 C 67 18 106/59 L 96 Room Air Laboratory Results 06/05/23 06/05/23 06/04/23 Range/Units 05:44 05:44 19:39 WBC 7.03 7.88 (4.8-10.8) K/ul RBC 2.53 L 2.74 L (4.70-6.10) M/uL Hgb 7.8 L 8.6 L (14.0-18.0) g/dl Hct 23.2 L 25.3 L (42.0-52.0) % MCV 91.7 92.3 D (80.0-100.0) fL MCH 30.8 31.4 (25.0-34.0) pg MCHC 33.6 34.0 (32.0-36.0) g/dL RDW Std Deviation 87.0 H 87.6 H (36.4-46.3) fL RDW Coeff of Eliezer 26.7 H 26.7 H (11.5-14.5) % Plt Count 165 185 (130-400) K/uL MPV 8.8 L 8.8 L (9.4-12.4) fL Sodium 135 L (136-145) mmol/L Potassium 3.7 (3.5-5.1) mmol/L Chloride 105 (98-107) mmol/L Carbon Dioxide 26 (21-32) mmol/L Anion Gap 4 (3-11) BUN 8 (6-23) mg/dl Creatinine 0.64 (0.6-1.4) mg/dl Est Cr Clr Drug Dosing 109.8 ml/min Est GFR ( Amer) 118.3 ml/min Est GFR (Non-Af Amer) 102.0 ml/min BUN/Creatinine Ratio 12.5 (10-20) Glucose 110 H (70-99(Fasting)) mg/dl Calcium 7.9 L (8.6-10.3) mg/dl Magnesium 1.9 (1.7-2.4) mg/dl Iron (35-175) mcg/dl TIBC (250-450) mcg/dl Unsaturated IBC (155-355) mcg/dl Transferrin % Sat (20-50) % Ferritin (8-388) ng/ml Total Bilirubin 0.6 (0.2-1.0) mg/dl AST 11 L (13-39) U/L ALT 7 (7-52) U/L Alkaline Phosphatase 43 (34-104) U/L Total Protein 5.5 L (6.0-8.3) gm/dl Albumin 3.3 L (3.4-5.0) gm/dl Globulin 2.2 L (2.5-4.0) gm/dl Albumin/Globulin Ratio 1.5 (0.9-2) Vitamin B12 (180-914) pg/ml Folate (>5.38) ng/ml TSH (0.300-4.500) uIu/ml Free T4 (0.61-1.60) ng/dl Blood Type Antibody Screen Crossmatch 07/26/23 07/26/23 07/26/23 Range/Units 09:25 09:25 09:25 WBC (4.8-10.8) K/ul RBC (4.70-6.10) M/uL Hgb (14.0-18.0) g/dl Hct (42.0-52.0) % MCV (80.0-100.0) fL MCH (25.0-34.0) pg MCHC (32.0-36.0) g/dL RDW Std Deviation (36.4-46.3) fL RDW Coeff of Eliezer (11.5-14.5) % Plt Count (130-400) K/uL MPV (9.4-12.4) fL Sodium (136-145) mmol/L Potassium (3.5-5.1) mmol/L Chloride (98-107) mmol/L Carbon Dioxide (21-32) mmol/L Anion Gap (3-11) BUN (6-23) mg/dl Creatinine (0.6-1.4) mg/dl Est Cr Clr Drug Dosing ml/min Est GFR ( Amer) ml/min Est GFR (Non-Af Amer) ml/min BUN/Creatinine Ratio (10-20) Glucose (70-99(Fasting)) mg/dl Calcium (8.6-10.3) mg/dl Magnesium (1.7-2.4) mg/dl Iron 51 (35-175) mcg/dl TIBC 301 (250-450) mcg/dl Unsaturated IBC 250 (155-355) mcg/dl Transferrin % Sat 17 L (20-50) % Ferritin 922.0 H (8-388) ng/ml Total Bilirubin (0.2-1.0) mg/dl AST (13-39) U/L ALT (7-52) U/L Alkaline Phosphatase (34-104) U/L Total Protein (6.0-8.3) gm/dl Albumin (3.4-5.0) gm/dl Globulin (2.5-4.0) gm/dl Albumin/Globulin Ratio (0.9-2) Vitamin B12 1179 H (180-914) pg/ml Folate > 22.30 (>5.38) ng/ml TSH 6.460 H (0.300-4.500) uIu/ml Free T4 0.98 (0.61-1.60) ng/dl Blood Type Antibody Screen Crossmatch 06/04/23 Range/Units 09:25 WBC (4.8-10.8) K/ul RBC (4.70-6.10) M/uL Hgb (14.0-18.0) g/dl Hct (42.0-52.0) % MCV (80.0-100.0) fL MCH (25.0-34.0) pg MCHC (32.0-36.0) g/dL RDW Std Deviation (36.4-46.3) fL RDW Coeff of Eliezer (11.5-14.5) % Plt Count (130-400) K/uL MPV (9.4-12.4) fL Sodium (136-145) mmol/L Potassium (3.5-5.1) mmol/L Chloride (98-107) mmol/L Carbon Dioxide (21-32) mmol/L Anion Gap (3-11) BUN (6-23) mg/dl Creatinine (0.6-1.4) mg/dl Est Cr Clr Drug Dosing ml/min Est GFR ( Amer) ml/min Est GFR (Non-Af Amer) ml/min BUN/Creatinine Ratio (10-20) Glucose (70-99(Fasting)) mg/dl Calcium (8.6-10.3) mg/dl Magnesium (1.7-2.4) mg/dl Iron (35-175) mcg/dl TIBC (250-450) mcg/dl Unsaturated IBC (155-355) mcg/dl Transferrin % Sat (20-50) % Ferritin (8-388) ng/ml Total Bilirubin (0.2-1.0) mg/dl AST (13-39) U/L ALT (7-52) U/L Alkaline Phosphatase (34-104) U/L Total Protein (6.0-8.3) gm/dl Albumin (3.4-5.0) gm/dl Globulin (2.5-4.0) gm/dl Albumin/Globulin Ratio (0.9-2) Vitamin B12 (180-914) pg/ml Folate (>5.38) ng/ml TSH (0.300-4.500) uIu/ml Free T4 (0.61-1.60) ng/dl Blood Type A Positive Antibody Screen NEGATIVE Crossmatch See Detail PG Care Time/CCT Total # of Minutes Spent Total Time Spent with Patient: Total time spent is greater than 50% in coordination of care (as documented) at patient's floor/unit and/or counseling patient: Coding Level of Care Code 72956 SUB INP/OBS CARE 3/50MIN Diagnoses Hematuria R31.0 Hematuria type: gross Urinary retention R33.9 Urinary tract infection N39.0 Hematuria presence: with hematuria History of pulmonary embolism Z86.711 Prostate cancer metastatic to bone C61; C79.51 HLD (hyperlipidemia) E78.5 Hypertension I10 Hyponatremia E87.1 S/P IVC filter Z95.828 Acute retention of urine R33.8 Acute blood loss anemia D62 (1) Hematuria Hematuria type: gross Qualified Code(s): R31.0 - Gross hematuria (3) Urinary tract infection Hematuria presence: with hematuria
[2023-06-05] MEDS: METOPROLOL TARTRATE 100 MG TAB PO SCH ×2 (08:40→19:54)
[2023-06-05] MEDS: oxyBUTYnin chloride 5 MG TAB PO SCH ×2 (08:40→19:55)
[2023-06-05] MEDS ORDERED: CALCIUM GLUCONATE 10% 1,000 MG in DEXTROSE 5% 50 ML IV ONE (09:35)
[2023-06-05] MEDS ORDERED: STAT IV STA (09:35)
[2023-06-05] MEDS ORDERED: SODIUM CHLORIDE 0.9% 250 ML IV PRN (09:35)
[2023-06-05] MEDS ORDERED: FUROSEMIDE 40 MG/4 ML VIAL IV ONE (09:35)
--- NOTE | 2023-06-05 12:16 | Urology Progress Note ---
Date of Service June 05, 2023 Assessment & Plan (1) Urinary retention: (2) Acute blood loss anemia: (3) Prostate cancer: (4) Gross hematuria: Plan 67-year-old male with hematuria and urinary retention who is status post cystoscopy, clot evacuation and fulguration on 06/04/2023. CBI was clamped this morning and urine remains clear. Recommend a void trial this afternoon. He has an appointment with urology tomorrow and I will cancel that and set up appropriate follow-up with me in the clinic Hemoglobin 7.8 this morning after 1 unit of blood yesterday. He is not actively bleeding any longer and I suspect he is just downtrending from bleeding over the past 2 weeks. Transfusion per medicine team Stable for discharge home from a urologic perspective whenever medicine feels comfortable after he passes his void trial Urology to follow peripherally Admission and Anticipated Discharge Date Admission Date: June 03, 2023 Subjective No acute issues overnight. Taken to the OR for cystoscopy clot evacuation fulguration yesterday where a large amount of old blood was removed. Urine was clear on CBI this morning he was clamped. Repeat evaluation at noon showed that his urine was clear yellow off CBI. Patient denies any current complaints. Review of Systems Review of Systems: 14 point review of systems negative outside of what is listed above in HPI Physical Exam Physical Exam: General: Alert and oriented, no acute distress HEENT: Normocephalic, mucous membranes moist Pulmonary: Nonlabored respirations Abdomen: Nondistended : 24 Yoruba three-way catheter off CBI with clear yellow urine Extremities: Moves all 4 spontaneously Neuro: No gross deficits Skin: Warm, dry, no rashes noted Results & Data Vital Signs (Past 12 Hours) Vital Signs Temp Pulse Resp BP BP Pulse Ox O2 Del Method 06/05/23 11:00 37.0 C 52 L 17 97/64 L 98 Room Air 06/05/23 07:17 37.1 C 79 17 110/56 L 97 Room Air 06/05/23 07:13 37.2 C 68 18 118/68 96 Room Air 06/05/23 03:27 37.1 C 57 L 18 100/56 L 93 Room Air PG Care Time/CCT Total # of Minutes Spent Total Time Spent with Patient: Total time spent is greater than 50% in coordination of care (as documented) at patient's floor/unit and/or counseling patient: Coding Level of Care Code 44121 SUB INP/OBS CARE 2/35MIN Diagnoses Urinary retention R33.9 Acute blood loss anemia D62 Prostate cancer C61 Gross hematuria R31.0
--- NOTE | 2023-06-05 16:11 | Communication Note ---
Date of Service: June 05, [address] Coy (as patient did have IVC filter removed) about timing to resume lovenox. Given urine clear/no further bleeding, ok to resume for today. Will monitor for any issues/rebleeding. Of note, fecal occult positive however stool without melena or carlos blood noted. Med list notes PO iron supplementation but hasn't gotten while inpatient. ?false positive. Given no carlos bleeding/GI discomfort, can arrange for GI outpt f/u
[2023-06-05] MEDS ORDERED: ENOXAPARIN INJ 30 MG/0.3 ML SYR SQ SCH (16:30)
[2023-06-05 20:02] VITALS: O2SAT 97
[2023-06-05] MEDS: cefTRIAXone SODIUM 2,000 MG in DEXTROSE 5% 50 ML IV SCH (21:41)
[2023-06-06] MEDS: ABIRATERONE ACETATE 250 MG PO SCH (06:00)
[2023-06-06 07:35] VITALS: BP 159/79; PULSE 57; TEMP 98.4
--- NOTE | 2023-06-06 08:27 | Hospitalist Progress Note ---
Date of Service June 06, 2023 Assessment & Plan (1) Hematuria: Plan: Had rosario placement done in the ED, patient started having clots and dark red urine in Rosario bag. Patient with 2 episodes of urinary retention over the past 2 weeks and was scheduled to have a cystoscope on 06/06. with ongoing pain/discomfort despite rosario placement Hgb baseline in 10.8-12 range, 8.2 on admission CTAP on admission with Large-volume hematuria within the urinary bladder, which contains a Rosario catheter. Recent prostatectomy. Urology on consult Hgb dropped to 7.5 AM 06/04 s/p 2 u PRBC on 06/04 POD#1 s/p Cystoscopy, Clot Evacuation, Fulguration(Not Applicable) - Billy Coy MD on 06/04. * Per OR report, noting removal of ~500-600cc clot. No active bleeding but small amount of oozing at bladder neck was cauterized. 24F [address] way catheter inserted with return of clear urine Hgb 7.8 on 06/05, 2 additional units PRBC ordered w/ 40mg IV lasix. Also 1gm IV calcium given >3 units of blood to prevent further bleeding risk HEMATURIA IMPROVING -- clear yellow urine in rosario at present, to have voiding trial however appears unable to void overnight and rosario replaced and will need d/c with rosario until seen in follow up Lovenox on Hold (had been held since 05/19 per patient, has hx extensive DVT, s/p IVC filter (HAS BEEN REMOVED PER ) SCDs in place in meantime)defer to Urology on safety for resuming Lovenox (prior eliquis use but w/ significant bleeding) --> discussed w/ Dr Coy, and ok to resume last evening 06/05 Remains on Ceftriaxone given still on CBI to prevent issue Urine cx w/ KLEBSIELLA OXYTOCA on preliminary, pansensitive except cefazolin Labs pending from this morning Also checked fecal occult given diarrhea to ensure no microscopic bleeding from there either -- did have + occult testing. Home med list w/ PPI and had not been on, resumed Consider PPI BID until seen in follow up as long as not reporting any carlos bleeding (2) Urinary retention: Plan: 2nd to above improved since placement of rosario/OR for evacuation of clot (3) Urinary tract infection: Plan: Given 2000 mg ceftriaxone in the ED, continued Urine cx Kelbsiella as above, on ceftriaxone while inpatient and will continue while on CBI --> rosario exchanged overnight (4) History of pulmonary embolism: Plan: Patient with history of pulmonary embolism. Patient was told did not take his Lovenox since 05/19. However and unable to find any where in the chart where patient was instructed to not take Lovenox (saw Dr Linares note, rec to continue holding) Does have IVC filter Continuing to hold Lovenox -- resume when able per instructions w/ urology (5) Prostate cancer metastatic to bone: Plan: Status post prostatectomy back in 2006. Follows with oncology outpatient for metastatic cancer. (6) HLD (hyperlipidemia): Plan: Resumed atorvastatin (7) Hypertension: Plan: Chronic, stable Continue metoprolol 100mg BID, losartan 50mg Losartan held last evneing post-op to prevent hypotension Giving lasix w/ PRBC and will likely be able to resume losartan for tomorrow (8) Hyponatremia: Plan: N1 128 on admit, hypovolemia/anemia from hematuria as above. IVF provided as well as PRBC Na improved to 135 this morning TSH elevated but T4 wnl and rec outpt f/u for repeat check (9) S/P IVC filter: Plan: noted hx (10) Acute retention of urine: Plan: now w/ rosario - management per urology (11) Acute blood loss anemia: Plan: acute drop from baseline, check anemia labs. 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 Does have IVC filter to note. SCDs ordered and had been wearing. Not on patient this morning but asked RN to place back on. No evidence for DVT at present but will need to monitor. continued inpatient stay, hopeful dc tomorrow pending labs/urine appearance Admission and Anticipated Discharge Date Admission Date: June 03, 2023 Results & Data Results & Data Vital Signs (Past 12 Hours) Vital Signs Temp Pulse Resp BP BP Pulse Ox O2 Del Method 06/06/23 07:00 36.9 C 57 L 16 159/79 H 97 Room Air 06/05/23 23:34 37.0 C 54 L 18 118/65 97 Room Air PG Care Time/CCT Total # of Minutes Spent Total Time Spent with Patient: Total time spent is greater than 50% in coordination of care (as documented) at patient's floor/unit and/or counseling patient: Coding Diagnoses Hematuria R31.0 Hematuria type: gross Urinary retention R33.9 Urinary tract infection N39.0 Hematuria presence: with hematuria History of pulmonary embolism Z86.711 Prostate cancer metastatic to bone C61; C79.51 HLD (hyperlipidemia) E78.5 Hypertension I10 Hyponatremia E87.1 S/P IVC filter Z95.828 Acute retention of urine R33.8 Acute blood loss anemia D62 (1) Hematuria Hematuria type: gross Qualified Code(s): R31.0 - Gross hematuria (3) Urinary tract infection Hematuria presence: with hematuria
[2023-06-06 08:37] LABS: INR 0.9 (0.9-1.1); Prothrombin Time 10.3 Seconds (9.0-12.0)
[2023-06-06 08:39] LABS: BUN Creatinine Ratio 8.2 (10-20); Calcium 8.1 mg/dl (8.6-10.3); Creatinine Clr Calc Pharmacy 115.2 ml/min; Est GFR (African American) 120.6 ml/min; Est GFR (Non-African American) 104.1 ml/min; Magnesium 1.8 mg/dl (1.7-2.4); Potassium 3.3 mmol/L (3.5-5.1)
[2023-06-06] MEDS ORDERED: POTASSIUM CHLORIDE CRTAB 20 MEQ TABCR PO STA (08:43)
[2023-06-06] MEDS ORDERED: PANTOprazole 40 MG TAB PO SCH (09:00)
[2023-06-06] MEDS: oxyBUTYnin chloride 5 MG TAB PO SCH (09:06)
[2023-06-06] MEDS: METOPROLOL TARTRATE 100 MG TAB PO SCH (09:09)
[2023-06-06 09:39] LABS: Hematocrit (blood only) 29.6 % (42.0-52.0); Hemoglobin 9.9 g/dl (14.0-18.0); Mean Corpuscular Hemoglobin 30.2 pg (25.0-34.0); Mean Corpuscular Hgb Conc 33.4 g/dL (32.0-36.0); Mean Corpuscular Volume 90.2 fL (80.0-100.0); Mean Platelet Volume 9.4 fL (9.4-12.4); Platelet Count 191 K/uL (130-400); RDW Coefficient of Variation 23.8 % (11.5-14.5); RDW Standard Deviation 80.4 fL (36.4-46.3); Red Blood Count 3.28 M/uL (4.70-6.10); White Blood Count 5.61 K/ul (4.8-10.8)
--- NOTE | 2023-06-06 10:12 | Discharge Summary ---
Date of Service June 06, 2023 Admission HPI Per Admitting Provider Patient is a 67-year-old male with past medical history of prostate cancer, status post prostatectomy in 2007, status post orchiectomy in 2018, radiation- induced cystitis, DVT, pulmonary embolism. Patient presented to the hospital due to difficulties with urination. Patient has not been able to urinate since 3 AM this morning. It is very painful when he tries to urinate. He has had this issue before approximately 2 weeks ago. He denies any fevers, chills, nausea, vomiting, abdominal pain, or any issues with bowel movements. In the ED patient had a Rosario placed and patient was able to have some output of urine though significantly red in color and still remains painful in his urethra. Patient was previously on Lovenox for known history of DVT and PE but has not been taking it since his urinary retention has started. Patient has had a similar issue previously that happened about 2 weeks ago. He followed with urology and it was recommended that he have a cystoscopy which was scheduled for 06/06. Previously patient has not had any not having any issues with urinary retention previously. Stating he has only had about 1 incidence over the last 10 years prior to 2 weeks ago. CBC showing a slight drop in hemoglobin from his baseline, UA positive for red blood cells and bacteria. Urine cultures pending. Admission Exam Per Admitting Provider Constitutional: well-appearing, no acute distress HEENT: NCAT, no conjunctival injection CV: regular rhythm, no murmur appreciated, extremities well-perfused, no LE edema Resp: CTABL, no wheezes/rales/rhonchi appreciated, no increased work of breathing GI: soft, nondistended, nontender, BS normoactive : Dark red urine and clots seen in Rosario bag MSK: no gross deformities appreciated Skin: warm, dry, no rash appreciated Neuro: alert, oriented, no focal neurologic deficit appreciated Principal Diagnosis Hematuria, UTI Discharge Exam General: WN male resting in bed, NAD, general pallor much improved, more energetic, hopeful for discharge HEENT: head normocephalic, atraumatic, mmm, trachea midline Resp: no distress/tachypnea, no cough, no wheezing/rales, on room air CV: RRR, no significant m/r/g, no increased calf edema/tenderness, pulses palpab le GI: +BS throughout, soft/suprapubic tenderness, no guarding/rebound : rosario with clear yellow urine draining MSK/Neuro: no focal deficits, able to follow commands, no slurred speech/facial droop Psych: alert/oriented, cooperative with care Discharge Data Allergies Allergy/AdvReac Type Severity Reaction Status Date / Time No Known Drug Allergies Allergy Nkda Verified 06/05/23 15:32 Consultations 06/03/23 21:37 ED Decision to Admit Stat 06/03/23 23:50 Consult Urology Routine Procedures Performed Operation Date: 06/04/23 12:10 Actual Procedures p Cystoscopy, Clot Evacuation, Fulguration(Not Applicable) - Billy Coy MD Ordered Studies Abdomen/Pelvis CT 06/03/23 22:19 Exam(s): CT ABDOMEN + PELVIS With Contrast IV Amt: 93 ML OPTIRAY 320 EXAM: CT Abdomen and Pelvis With Intravenous Contrast CLINICAL HISTORY: Reason for exam: Hematuria, obstruction, h/o prostate radiation. TECHNIQUE: Axial computed tomography images of the abdomen and pelvis with intravenous contrast. Automated exposure control was utilized for the study. A dose lowering technique was utilized adhering to the principles of ALARA. CONTRAST: Patient received 93 ML OPTIRAY 320 of IV contrast COMPARISON: CT abdomen pelvis July 01, 2019. FINDINGS: Lung bases: Unremarkable. No mass. No consolidation. ABDOMEN: Liver: Unremarkable. No mass. Gallbladder and bile ducts: Unremarkable. No calcified stones. No ductal dilation. Pancreas: Unremarkable. No mass. No ductal dilation. Spleen: Unremarkable. No splenomegaly. Adrenals: Unremarkable. No mass. Kidneys and ureters: See below. Stomach and bowel: Diverticulosis, without acute diverticulitis. No small bowel obstruction. No free intraperitoneal air. PELVIS: Appendix: No findings to suggest acute appendicitis. Bladder: Large-volume hematuria within the urinary bladder, which contains a Rosario catheter. Recent prostatectomy. Mild fullness of the bilateral renal collecting systems. No delayed nephrogram hydronephrosis. Reproductive: Unremarkable as visualized. ABDOMEN and PELVIS: Intraperitoneal space: Unremarkable. No free air. No significant fluid collection. Bones/joints: Degenerative changes of the spine. No acute fracture. No dislocation. Soft tissues: Unremarkable. Vasculature: Atherosclerotic changes of the aorta. No abdominal aortic aneurysm. Lymph nodes: Unremarkable. No enlarged lymph nodes. IMPRESSION: 1. Large-volume hematuria within the urinary bladder, which contains a Rosario catheter. Recent prostatectomy. Mild fullness of the bilateral renal collecting systems. No delayed nephrogram hydronephrosis. 2. Diverticulosis, without acute diverticulitis. No small bowel obstruction. No free intraperitoneal air. Electronically signed by: Mikal Jones MD 06/03/23 23:38 PM Hospital Course (1) Hematuria: Had rosario placement done in the ED, patient started having clots and dark red urine in Rosario bag. Patient with 2 episodes of urinary retention over the past 2 weeks and was scheduled to have a cystoscope on 06/06. with ongoing pain/discomfort despite Rosario placement Hgb baseline in 10.8-12 range, 8.2 on admission CTAP on admission with Large-volume hematuria within the urinary bladder, which contains a Rosario catheter. Noted prostatectomy. Urology on consult Hgb dropped to 7.5 AM 06/04 s/p 2 u PRBC on 06/04 s/p Cystoscopy, Clot Evacuation, Fulguration(Not Applicable) - Billy Coy MD on 06/04. * Per OR report, noting removal of ~500-600cc clot. No active bleeding but small amount of oozing at bladder neck was cauterized. 24F [address] way catheter inserted with return of clear urine CBI while inpatient per Urology, remained on IV Rocephin in meantime -- see uti/urine cx below Hgb again low 7.8 following OR on 06/05, 2 additional units PRBC ordered w/ 40mg IV lasix. Also 1gm IV calcium given >3 units of blood to prevent further bleeding risk. NO FURTHER BLEEDING FOLLOWING that w/ CBI Hematuria resolved, repeat hgb 9.9. Unfortunately clamping CBI then discontinuation of rosario overnight prior to discharge with issues voiding and rosario placement overnight with discussion with Urology plans to d/c w/ Rosario and f//u outpatient. --Patient had clear yellow urine in the morning but slight pink tinge but mostly clear and felt stable for discharge by urology Lovenox had been on hold since 05/19 given hx DVT (had IVC filter, per since removed) and ok'd by Dr Coy to resume 06/05 to prevent DVT. No evidence for DVT or edema/calf pain on exam Had been ordered and utilizing SCDs while inpatient Fecal occult + but no Abd pain or carlos bleeding/melena. CM navigator to arrange outpt f/u GI as well given such. PPI increased to BID in meantime Updated as well as patient to return to ER with any worsening bleeding or for any issues with drainage from catheter UTI Likely catheter associated given recent instrumentation Remained on Rocephin while getting CBI inpatient, continued x 1 day following removal and planned transntion to complete abx course with Ciprofloxacin PO (2) Urinary retention: 2nd to above, rosario/ABX to complete course as outlined. F/u urology for voiding trial (3) Urinary tract infection: Ceftriaxone as above while on CBI, transitioned to PO Cipro to complete course at discharge as discussed with Urology (4) History of pulmonary embolism: Patient with history of pulmonary embolism. Patient was told did not take his Lovenox since 05/19. However and unable to find any where in the chart where patient was instructed to not take Lovenox (saw Dr Linares note, rec to continue holding while having the hematuria which had improved) Does have IVC filter listed in chart however states this had been removed Discussed w/ urology and resumed lovenox evening 06/05 and to conitnue at [place]. No evidence for DVT or SOB/hypotension reported/pleuritic CP F/u coag clinic (5) Prostate cancer metastatic to bone: Status post prostatectomy back in 2006. Follows with oncology outpatient for metastatic cancer. (6) HLD (hyperlipidemia): atorvastatin (7) Hypertension: Chronic, stable Continued metoprolol 100mg BID, losartan 50mg (8) Hyponatremia: N1 128 on admit, hypovolemia/anemia from hematuria as above. IVF provided as well as PRBC Na stable on repeat, asymptomatic from such TSH elevated but T4 wnl and rec outpt f/u for repeat check in 4-6 weeks (9) S/P IVC filter: noted hx (10) Acute retention of urine: now w/ rosario - management per urology in follow up rosario presently draining without issue (11) Acute blood loss anemia: acute drop from baseline, check anemia labs. 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 +fecal occult blood but no carlos blood noted/melena/GI symptoms. PPI resumed and increased to BID -- GI f/u per navigator to be arranged Some pink tinge urine right before discharge but discussed w/ urology and ok for discharge, mostly clear F/u Urology at discharge for ongoing management rosario Plan DVT ppx: SCDs ordered as patient was holding home Lovenox since the 10th given hematuria but given clearing, had resumed evening 06/05 and to monitor for any issues -- see above F/u Urology next week, or sooner if needed. Instructed on signs/sx to return to ER for and reviewed with . Stable for discharge from urology Total Time Total Time Spent Total Time Spent (In Minutes): 45 Discharge Plan Discharge Items Patient Disposition: Home - Self-Care Reason For Visit: URINARY RETENTION Discharge Diagnosis: Urinary Retention from Clot, Hematuria, UTI Goals: You have been hospitalized for an urgent problem which required surgery. During your stay at [facility], we have made an effort to correct the problem that brought you to the hospital while keeping you as comfortable as possible. Surgery and medications were used to bring your condition under control and your discharge instructions will include directions for any medications you should take after leaving the hospital. Please make sure to follow the advice of your surgeon regarding follow up with the surgeon and with your primary care provider. Activity: As commented below Non-emergency contact: Primary Care Provider and Urologist Call non-emergency contact if: you have any medication questions, your symptoms worsen, your pain is not controlled and you have a fever Follow-up/Referrals: Nam Carlson [Primary Care Provider] - 06/10/23 3:30 pm Billy Coy MD [Physician] - 07/18/23 8:40 am Diet: Heart Healthy Addtl Attending Provider Instructions: You have been hospitalized for urinary retention from a large clot in your bladder. Catheter was placed and you went to the OR for removal of the clot as well as cauterization of a small area of oozing. You received blood while inpatient and your repeat labs are stable. Urine culture showed bacteria and you have been on IV antibiotics and have been sent CIPROFLOXACIN 500mg by mouth TWICE daily for another 5 days to complete 7 day course. You are being discharged with a Rosario until seen by Urology in followup and should monitor for any issues with drainage/pain/bleeding. Lovenox has been resumed while inpatient and you should continue this at discharge. You may want to increase your Protonix to twice daily given microscopic blood in stool and alert primary care if any increased/noticeable blood present but we are going to arrange GI follow up at discharge as well. Please follow up with primary care in the next 7-10 days. Please return to the ER with any issue with catheter, fever, chest pain, shortness of breath, dizziness or any other issues for you. Take care! Pending Studies at Discharge: No Stand-Alone Forms: My [facility], Smoking Cessation Medications and DC Order Prescriptions: New ciprofloxacin HCl 500 mg tablet 500 mg PO BID Qty: 14 0RF Continued mirtazapine 30 mg tablet 15 mg PO HS Patient Comments: * 1/2 TABLET - 1 TABLET AT BEDTIME abiraterone [Zytiga] 500 mg tablet 1,000 mg PO DAILY Rx Instructions: must be taken on empty stomach, at least 1 hr before or 2 hrs after a meal/food prednisone 5 mg tablet 5 mg PO BID gabapentin 300 mg capsule 300 mg PO BID enoxaparin 30 mg/0.3 mL syringe 30 mg SQ Q24H Qty: 90 0RF losartan [Cozaar] 50 mg tablet 50 mg PO HS multivitamin Tablet 1 tab PO QAM ascorbic acid (vitamin C) [Vitamin C] 1,000 mg Tablet 1 g PO QAM atorvastatin 20 mg Tablet 20 mg PO HS cyanocobalamin (vitamin B-12) [Vitamin B-12] 2,500 mcg Tablet, Sublingual 2,500 mcg SUBLINGUAL QAM metoprolol tartrate 100 mg Tablet 100 mg PO BID allopurinol 100 mg Tablet 100 mg PO QPM folic acid 1 mg Tablet 1 mg PO QAM cholecalciferol (vitamin D3) [Vitamin D3] 2,000 unit Capsule 2,000 unit PO QAM Changed omeprazole magnesium [Prilosec OTC] 20 mg Tablet,Delayed Release (Dr/Ec) 20 mg PO BID Qty: 60 0RF Discontinued ferrous sulfate [iron] 325 mg (65 mg iron) Tablet 325 mg PO QAM Discharge Orders: Discharge Order (Routine); Ordered 06/06/23 Ordered By: Keisha Cheatham/Other Patient Handouts: Urinary Tract Infections in Men Admission Data Admit Date/Time: 06/03/23 23:03 Attending Provider: Vidal Jerez Admit Provider: Fareed Noe Primary Care Provider: Nam Carlson Other Providers: Cristóbal Sands ; Billy Coy Other Interventions: Discharge Summary Assessment (RN) Last Done: 06/06/23 10:27 Supervising Physician Co-Signing Physician Notes The patient was not seen by me. The chart was reviewed. Case discussed with CAROLINA Diamond. Agree with assessment and plan Coding Level of Care Code 28868 INP/OBS DISCH >30 MIN Diagnoses Hematuria R31.0 Hematuria type: gross Urinary retention R33.9 Urinary tract infection N39.0 Hematuria presence: with hematuria History of pulmonary embolism Z86.711 Prostate cancer metastatic to bone C61; C79.51 HLD (hyperlipidemia) E78.5 Hypertension I10 Hyponatremia E87.1 S/P IVC filter Z95.828 Acute retention of urine R33.8 Acute blood loss anemia D62
--- NOTE | 2023-06-06 12:04 | Urology Progress Note ---
Date of Service June 06, 2023 Assessment & Plan (1) Urinary retention: (2) Acute blood loss anemia: (3) Prostate cancer: (4) Gross hematuria: Plan 67-year-old male with hematuria and urinary retention who is status post cystoscopy, clot evacuation and fulguration on 06/04/2023. Afebrile and hemodynamically stable. Labs today show no leukocytosis, hemoglobin 9.9, creatinine normal. Patient unfortunately failed his voiding trial yesterday and a Shepherd catheter was replaced. Will plan to maintain the Shepherd catheter for 1 week. We will arrange a voiding trial in our office. Stable for discharge home from a urologic perspective when medically stable. Urology to follow peripherally. Please contact us with any further questions, concerns, or changes in patient status Admission and Anticipated Discharge Date Admission Date: June 03, 2023 Subjective Patient examined at bedside this AM. Awake, resting in bed on arrival. No acute distress. Patient unfortunately failed his voiding trial yesterday and a catheter was replaced. Urine was slightly pink-tinged, but has been mostly clear. Plan is for discharge home today per primary team. Review of Systems Constitutional: as per Subjective / HPI Genitourinary: + as per Subjective / HPI Physical Exam Constitutional: no acute distress Respiratory: no respiratory distress and no labored breathing Neurologic: awake Psychiatric: A+Ox3, euthymic affect Genitourinary: Shepherd intact, urine is clear yellow in bag. Results & Data Vital Signs (Past 12 Hours) Vital Signs Temp Pulse Resp BP BP Pulse Ox O2 Del Method 06/06/23 10:27 36.9 C 57 L 16 118/65 159/79 H 97 06/06/23 07:00 36.9 C 57 L 16 159/79 H 97 Room Air PG Care Time/CCT Total # of Minutes Spent Total Time Spent with Patient: Total time spent is greater than 50% in coordination of care (as documented) at patient's floor/unit and/or counseling patient: Coding Level of Care Code 41444 SUB INP/OBS CARE 2/35MIN Diagnoses Urinary retention R33.9 Acute blood loss anemia D62 Prostate cancer C61 Gross hematuria R31.0
== END 2023-06-06 11:27 | disposition home or self-care (01) | DRG 663 ==
LOC: ED 18:39 → SUATTDRO 23:03 → 3N 23:03